=== PATIENT | male | born 1970 | race Caucasian/White ===

== ENCOUNTER 2025-03-22 19:44 | Inpatient (IN) | payer OTHER, SELFPAY ==
[2025-03-22 20:09] VITALS: BP 115/78; BP 140/80; PULSE 100; PULSE 94; RESP 18; TEMP 36.8; O2SAT 95; O2SAT 98; BMI 36.5
[2025-03-22 20:50] VITALS: BP 123/71; PULSE 93; RESP 16; TEMP 36.5; O2SAT 94
[2025-03-22 20:52] LABS: MANUAL DIFF FLAG NO
[2025-03-22 20:53] LABS: Basophils Percent Auto 0.4 % (0-2); Eosinophils Absolute Auto 0.1 X10*3/uL (0.0-0.4); Eosinophils Percent Auto 1.8 % (0-4); Hematocrit 42.1 % (42.0-52.0); Hemoglobin 15.8 g/dl (14.0-18.0); Imm Gran Abs Auto 0.01 X10*3/uL (0.00-0.03); Imm Gran Pct Auto 0.1 % (0.0-0.4); Lymphocytes Absolute Auto 1.4 X10*3/uL (1.2-4.9); Lymphocytes Percent Auto 19.1 % (20-40); Mean Corpuscular HGB Conc 37.5 g/dl (31.0-36.0); Mean Corpuscular Hemoglobin 33.1 pg (27.0-33.0); Mean Corpuscular Volume 88.3 fL (80.0-98.0); Mean Platelet Volume 8.6 fL (9.4-12.4); Monocytes Absolute Auto 0.5 X10*3/uL (0.1-1.2); Monocytes Percent Auto 6.4 % (2-11); Neutrophils Absolute Auto 5.4 x10*3/uL (2.0-8.3); Neutrophils Percent Auto 72.2 % (45-73); Platelet Count 126 X10*3/uL (160-400); Red Blood Count 4.77 X10*6/uL (4.60-5.80); Red Cell Distribution Width 11.6 % (11.0-16.0); White Blood Count 7.4 X10*3/uL (4.8-10.8)
[2025-03-22 21:09] LABS: Acetaminophen LAB < 3 mcg/mL (<30); Salicylate < 5.0 mg/dL (15-30)
[2025-03-22 21:10] LABS: Alanine Aminotransferase 87 U/L (0-40); Albumin Level 4.2 g/dL (3.5-5.0); Alkaline Phosphatase 86 U/L (39-117); Anion Gap 22 (12-20); Aspartate Amino Transferase 232 U/L (5-37); Bilirubin Total 0.6 mg/dL (0.0-1.0); Blood Urea Nitrogen 6 mg/dL (9-16); Calcium 8.7 mg/dL (8.4-10.2); Carbon Dioxide 18 mmol/L (22-29); Chloride 92 mmol/L (96-108); Creatinine Clr Calc Pharmacy 133.5; Estimated Glomerular Filt Rate > 60; Ethanol 308 mg/dL; Glucose Random 114 mg/dL (60-115); Potassium 4.4 mmol/L (3.3-5.1); Sodium 128 mmol/L (135-145); Total Protein 7.8 g/dL (6.5-8.0)
[2025-03-22 21:45] LABS: Appearance Urine Clear; Color Urine Yellow; Glucose Urine UA Negative (Negative); Leukocyte Esterase Urine Negative (Negative); Nitrite Urine Negative (Negative); Specific Gravity - Urine <= 1.005 (1.005-1.025); Urine Blood Negative (Negative); Urine Ketones Negative (Negative); Urine Protein Negative (Neg-Trace)
[2025-03-22 21:50] LABS: Bacteria Urine None Seen (None Seen); Hyaline Casts Urine 0-2 /LPF (0-2); RBC Urine 0-2 /HPF (0-2); Squamous Epithelial Cell Urine 0-2 /HPF (0-2); WBC Urine 0-5 /HPF (0-5)
[2025-03-22 21:54] LABS: Amphetamine Screen Urine Not Detected (Not Detect); Barbiturates, Urine Not Detected (Not Detect); Benzodiazepines Screen Urine Not Detected (Not Detect); Buprenorphine Scr Not Detected (Not Detect); Cannabinoid Screen Urine POSITIVE (Not Detect); Cocaine Screen Urine Not Detected (Not Detect); Fentanyl, urine Not Detected (Not Detect); Methadone Screen, Urine Not Detected (Not Detect); Opiate Screen Urine Not Detected (Not Detect); Oxycodone Screen Urine Not Detected (Not Detect); Phencyclidine Screen Urine Not Detected (Not Detect)
--- OUTSIDE RECORDS SUMMARY | 2025-03-22 21:55 | XMS_ITS | Encounter Summary ---
Author Organization [facility] Address [address] [place] [address] Care Team Providers Care Novelty Twister Tender Name Role Phone Hannah Salas MD Primary Care Provider [phone] Reason for Visit * Reason Onset Date Comments Testing 01/08/2023 Encounter Details Date Type Department Care Team Description 01/08/2023 Telephone Adult Medicine [address] [address] Tello Palacio, PAManuelaC [address] [place] [id number] Testing Social History Tobacco Use Types Packs/Day Years Used Date Smoking Tobacco: Never Smokeless Tobacco: Never Alcohol Use Standard Drinks/Week Comments Yes 0 (1 standard drink = 0.6 oz pur e alcohol) 12-15 beers per week Sex Assigned at Date Recorded Not on file Job Start Date Occupation Industry Not on file Not on file Not on file COVID-19 Exposure Response Date Recorded In the last 10 days, have yo u been in contact with someone who was confirmed or suspected to have Coronavirus/COVID-19? No / Unsure 12/29/2022 2:44 PM EST documented as of this encounter Miscellaneous Notes * Telephone Encounter - Debbi Isaac M.A. - 01/08/2023 11:18 AM EST Cologuard Order form and Patient demographics faxed to [employer] at documented in this encounter Plan of Treatment Not on file documented as of this encounter Visit Diagnoses Not on filedocumented in this encounter Care Teams Novelty Twister Tender Relationship Specialty Start Date End Date Hannah Salas MD [address] [place], [place] [phone] PCP - General 07/17/09 documented as of this encounter
--- OUTSIDE RECORDS SUMMARY | 2025-03-22 21:55 | XMS_ITS | Encounter Summary ---
Author Organization [facility] Address [address] [place] [address] Care Team Providers Care Strip Machine Operator Name Role Phone Hannah Salas MD Primary Care Provider Reason for Visit * Reason Comments E-prescribe Rx Request Encounter Details Date Type Department Care Team Description 07/16/2023 Refill Adult Medicine [address] [place] [address] [phone] Hannah Salas MD [address] [place] [id number] E-prescribe Rx Request Social History Tobacco Use Types Packs/Day Years Used Date Smoking Tobacco: Never Smokeless Tobacco: Never Alcohol Use Standard Drinks/Week Comments Yes 0 (1 standard drink = 0.6 oz pur e alcohol) 12-15 beers per week Sex Assigned at Date Recorded Not on file Job Start Date Occupation Industry Not on file Not on file Not on file documented as of this encounter Miscellaneous Notes * Telephone Encounter - Puja Jya M.A. - 07/24/2023 10:16 AM EDT Last office visit 12/29/22 Next office visit 10/02/23 Lab Results Component Value Date NA 138 12/26/2022 K 4.4 12/26/2022 CO2 27 12/26/2022 CL 105 12/26/2022 BUN 12 12/26/2022 CREAT 0.81 12/26/2022 GLU 103 12/26/2022 CA 9.1 12/26/2022 GFR 105 12/26/2022 documented in this encounter Plan of Treatment Not on file documented as of this encounter Visit Diagnoses Not on filedocumented in this encounter Care Teams Strip Machine Operator Relationship Specialty Start Date End Date Hannah Salas MD [address] [place] [address] PCP - General 07/17/09 documented as of this encounter
--- OUTSIDE RECORDS SUMMARY | 2025-03-22 21:55 | XMS_ITS | Encounter Summary ---
Author Organization [facility] Address [address] [place] [address] Care Team Providers Care Performance Instructor Name Role Phone Hannah Salas MD Primary Care Provider [phone] Reason for Visit * Reason Comments E-prescribe Rx Request Encounter Details Date Type Department Care Team Description 11/25/2021 Refill Gastroenterology - [place] [address] [phone] Ramses Sun PA-C [address] [address] E-prescribe Rx Request Social History Tobacco Use [...] on file documented as of this encounter Plan of Treatment Not on file documented as of this encounter Visit Diagnoses Not on filedocumented in this encounter Care Teams Performance Instructor Relationship Specialty Start Date End Date Hannah Salas MD [address] [place] [address] PCP - General 07/17/09 documented as of this encounter
--- OUTSIDE RECORDS SUMMARY | 2025-03-22 21:55 | XMS_ITS | Encounter Summary ---
Author Organization [facility] Address [address] [place] [address] Care Team Providers Care Aerospace Stress Engineer Name Role Phone Hannah Salas MD Primary Care Provider [phone] Reason for Visit * Reason Onset Date Comments Mychart Rx Refill 11/01/2018 Encounter Details Date Type Department Care Team Description 11/01/2018 Refill Adult Medicine [address] [facility] [address] [place] [address] Mychart Rx Refill Social History Tobacco Use Types Packs/Day Years [...] Miscellaneous Notes * Telephone Encounter - Debbi Hill M.A. - 11/01/2018 9:10 AM EST Lab Results Component Value Date CHOL 213 10/13/2017 LDL 126 10/13/2017 HDL 42 10/13/2017 TRIG 225 10/13/2017 SGOT 47 10/13/2017 SGPT 54 10/13/2017 Lab Results Component Value Date NA 143 12/07/2017 K 4.4 12/07/2017 CO2 24.0 12/07/2017 CL 103 12/07/2017 BUN 19 12/07/2017 CREAT 1.0 12/07/2017 GLU 86 12/07/2017 CA 9.1 12/07/2017 GFR > 60 12/07/2017 Pending ov with pcp 11/08/18 * Telephone Encounter - Debbi Hill M.A. - 11/01/2018 9:10 AM ESTFrom: Eliot Wolf To: SHADE Self Sent: 11/01/2018 8:53 AM EST Subject: Medication Renewal Request Original authorizing provider: SHADE Self would like a refill of the following medications: lisinopril (PRINIVIL,ZESTRIL) 20 MG tablet [SHADE Self] atorvastatin (LIPITOR) 10 MG tablet [SHADE Self] amlodipine (NORVASC) 10 MG tablet [SHADE Self] Preferred pharmacy: [facility] [address] [place] [address] AT [facility] Comment: documented in this encounter Plan of Treatment Not on file documented as of this encounter Visit Diagnoses Not on filedocumented in this encounter Care Teams Aerospace Stress Engineer Relationship Specialty Start Date End Date Hannah Salas MD [address] [place] [address] PCP - General 07/17/09 documented as of this encounter
--- OUTSIDE RECORDS SUMMARY | 2025-03-22 21:55 | XMS_ITS | Encounter Summary ---
Author Organization [facility] Address [address] [place] [address] Care Team Providers Care Camera Tuning Engineer Name Role Phone Hannah Salas MD Primary Care Provider [phone] Encounter Details Date Type Department Care Team Description 06/01/2023 Orders Only Medical Records [address] [place] [id number] Abstract, Provider Social History Tobacco Use Types Packs/Day Years [...] on file documented as of this encounter Procedures Procedure Name Priority Date/Time Associated Diagnosis Comments OUTSIDE COLONOSCOPY Routine 05/25/2023 documented in this encounter Results * OUTSIDE COLONOSCOPY (05/25/2023) Provider Abstract RADIOLOGY documented in this encounter Visit Diagnoses Not on filedocumented in this encounter Care Teams Camera Tuning Engineer Relationship Specialty Start Date End Date Hannah Salas MD [address] [place] [address] PCP - General 07/17/09 documented as of this encounter
--- OUTSIDE RECORDS SUMMARY | 2025-03-22 21:56 | XMS_ITS | Clinical Summary ---
Author Organization [facility] Address [address] [place] [address] Care Team Providers Care Assembling Motor Builder Name Role Phone Hannah Salas MD Primary Care Provider [phone] Allergies No known active allergies Medications Medication Sig Dispensed Refills Start Date End Date Status psyllium (METAMUCIL) 58.6 % packet Take 1 Packet by mouth daily. 30 Each 11 12/20/2020 Active vitamin E 400 units capsule TAKE 1 CAPSULE BY MOUTH TWICE A DAY 180 capsule 3 11/25/2021 Active econazole nitrate (Spectazole) 1 % cream Apply to affected area, bid 45 g 1 04/23/2022 Active amlodipine (NORVASC) 10 MG tablet Take 1 Tablet by mouth daily. 90 Tablet 1 04/05/2024 Active lisinopril (PRINIVIL,ZESTRIL) 30 MG tablet Take 1 Tablet by mouth daily. 90 Tablet 1 04/05/2024 Active atorvastatin (LIPITOR) 10 MG tablet Take 1 Tablet by mouth daily. 90 Tablet 1 04/05/2024 Active Active Problems Problem Noted Date WILBER (obstructive sleep apnea) 02/23/2024 Severe obesity with body mass index (BMI ) of 35.0 to 39.9 with comorbidity 03/01/2021 Elevated ferritin level 11/28/2020 Elevated LFTs 11/23/2020 Tinea corporis 12/09/2017 Aortic root dilatation 11/13/2017 Overview: 4.0 cm on echo 04/2018 Pure hypercholesterolemia 10/14/2017 Hypertension 09/30/2017 Overweight 09/30/2017 Elevated liver enzymes Fatty liver Resolved Problems Problem Noted Date Resolved Date Mixed hyperlipidemia 03/15/2010 09/30/2017 Atypical chest pain 11/01/2009 09/30/2017 Overview: ETT 2008 (-) Immunizations Name Administration Dates Next Due COVID-19 (Pfizer) 10/02/2021,02/19/2021,01/30/20 21 Influenza (> 6 Months) 10/22/2015,09/09/2013, Influenza H1N1 Pandemic Flu Vaccine 12/10/2009 Influenza Vaccine-quadrivalent 4 Years Plus 09/16 TD (STATE SUPPLIED FOR ADULTS AND CHILDREN) 12/17,12/30/2019,03/17/2001 TETANUS/DIPTHERIA (ADULT) 03/17/2001 Tdap 12/10/2009 Family History Medical History Relation Name Comments CA of Pancreas Aunt at age 80 Cholesterol Level Father Hypertension Father [place] Mother age 71 Relation Name Status Comments Aunt Brother Alive Father Alive Hypertension Mother (Age 71) mi Sister 1 Alive Sister 2 Alive Social History Tobacco Use Types Packs/Day Years Used Date Smoking Tobacco: Never Smokeless Tobacco: Never Alcohol Use Standard Drinks/Week Comments Yes 0 (1 standard drink = 0.6 oz pur e alcohol) 12-15 beers per week Sex Assigned at Date Recorded Not on file Job Start Date Occupation Industry Not on file Not on file Not on file Last Filed Vital Signs Vital Sign Reading Time Taken Comments Blood Pressure 116/64 04/05/2024 3:15 PM EDT Pulse 82 04/05/2024 3:15 PM EDT Temperature 35.4 ??C (95.8 ??F) 04/05/2024 3:15 PM ED T Respiratory Rate 18 04/05/2024 3:15 PM EDT Oxygen Saturation 97% 10/02/2023 5:25 PM EST Inhaled Oxygen Concentration - - Weight 110.1 kg (242 lb 12.8 oz) 04/05/2024 3:15 PM EDT Height 172.7 cm (5' 8 ) 04/05/2024 3:15 PM EDT Body Mass Index 36.92 04/05/2024 3:15 PM EDT Plan of Treatment Health Maintenance Due Date Last Done Comments SHINGLES VACCINE (1 of 2) 02/19/2018 Covid-19 Vaccine (4 - 2022-2 4 season) 2024 10/02/2021, 02/19/2021, 01/29/2021 BMI CHECK/ADVISE 11/16/2024 04/05/2024, 03/2024, 10/02/2023, Additional history exists INFLUENZA (Season Ended) 2025 017, 10/22/2015, 09/09/2013, Additional history exists BASELINE HEALTH EXAM 40-64 04/01/202604/01, 10/02/2023, 10/26/2013, Additional history exists CHOLESTEROL SCREENING 10/02/2028 10/02/2023 , 12/10/2021, 11/21/2020, Additional history exists DTAP/TDAP/TD (4 - Td or Tdap) 12/30/2029, 12/30/2019, 12/10/2009, Additional history exists PNEUMOCOCCAL VACCINE FOR HIG H RISK PATIENTS (#1) 02/19/2033 COLON CANCER SCREENING 05/25/2033 05/25/2023 HEPATITIS C SCREENING Completed 01/25/2021, 021 Care Teams Assembling Motor Builder Relationship Specialty Start Date End Date Hannah Salas MD [address] [place], [place] [phone] PCP - General 07/17/09
--- OUTSIDE RECORDS SUMMARY | 2025-03-22 21:56 | XMS_ITS | Encounter Summary ---
Author Organization [facility] Address [address] [place] [address] Care Team Providers Care Window Shade Cutter And Mounter Name Role Phone Hannah Salas MD Primary Care Provider [phone] Encounter Details Date Type Department Care Team Description 05/11/2024 Refill Adult Medicine [address] [address] Hannah Salas MD [address] [place] [address] [phone] Social History Tobacco Use Types Packs/Day Years [...] Miscellaneous Notes * Telephone Encounter - Puja Jay M.A. - 05/11/2024 11:15 AM EDT Last office visit 04/05/24 Patient is to follow-up with in 6 months documented in this encounter Plan of Treatment Not on file documented as of this encounter Visit Diagnoses Not on filedocumented in this encounter Care Teams Window Shade Cutter And Mounter Relationship Specialty Start Date End Date Hannah Salas MD [address] [place] [address] PCP - General 07/17/09 documented as of this encounter
--- OUTSIDE RECORDS SUMMARY | 2025-03-22 21:56 | XMS_ITS | Encounter Summary ---
Author Organization [facility] Address [address] [place] [address] Care Team Providers Care Tree Inspector Name Role Phone Hannah Salas MD Primary Care Provider [phone] Encounter Details Date Type Department Care Team Description 01/21/2021 Telephone Gastroenterology - [place] [address] [phone] Ramses Sun PA-C [address] [address] Social History Tobacco Use Types Packs/Day Years [...] encounter Miscellaneous Notes * Telephone Encounter - Ramses Sun PA-C - 01/21/2021 1:07 PM EST Noted and will be in touch with him regarding resuls * Telephone Encounter - Chani Gary - 01/21/2021 12:54 PM EST Left a detailed message to have labs drawn at his earliest convenience. Also let him know they are not fasting. * Telephone Encounter - Ramses Sun PA-C - 01/21/2021 12:22 PM EST Patient needs to repeat labs and I will be in touch with him regarding results. These labs do not have to be fasting documented in this encounter Plan of Treatment Not on file documented as of this encounter Results * (ABNORMAL) IRON/TIBC (01/25/2021 10:05 AM EST) Pathologist [facility] TOTAL IRON BINDING CAPACITY 377 250 - 450 ug/dL 01/25/2021 1:13 PM EST [facility] IRON (FE) 69 50 - 160 ug/dL 01/25/2021 1:13 PM EST [facility] % FE SATURATION 18(L) 20 - 50 % 1:13 PM EST [facility] 01/25/2021 10:0 5 AM EST 01/25/2021 10:05 AM EST Ramses Sun PA-C LAB [facility] * (ABNORMAL) HEPATITIS PANEL (01/25/2021 10:05 AM EST) Pathologist [facility] Hepatitis B surface antibody POSITIVE(A) NEGATIVE 01/25/2021 1:13 PM EST [facility] Hepatitis B surface antigen NEGATIVE NEGATIVE 01/25/2021 1:25 PM EST [facility] Comment: Over the counter supplements containing high doses of biotin may interfere with this assay. ??If interference is suspected, patients shoud be retested after refraining from biotin supplements for 72 hours. Hepatitis C Virus Diagnostic NEGATIVE NEGATIVE 01/25/2021 1:53 PM EST [facility] HEPATITIS A ANTIBODY TOTAL NEGATIVE NEGATIVE 01/25/2021 1:58 PM EST [facility] Comment: Over the counter supplements containing high doses of biotin may interfere with this assay. ??If interference is suspected, patients shoud be retested after refraining from biotin supplements for 72 hours. HEPATITIS B CORE ANTIBODY NEGATIVE NEGATIVE 01/25/2021 1:59 PM EST [facility] 01/25/2021 10:0 5 AM EST 01/25/2021 10:05 AM EST Ramses Corinne PA-C LAB Performing Organization Address [facility] Co de Phone Number [facility] * (ABNORMAL) FERRITIN ASSAY (01/25/2021 10:05 AM EST) FERRITIN 487(H) 26 - 388 ng/mL 01/25/2021 1:13 PM EST [facility] 01/25/2021 10:0 5 AM EST 01/25/2021 10:05 AM EST Ramses Corinne PA-C LAB Performing Organization Address [facility] Co de Phone Number [facility] * (ABNORMAL) COMPREHENSIVE METABOLIC PANEL (01/25/2021 10:05 AM EST) Blood Urea Nitrogen 13 5 - 25 mg/dL 01/25/2021 1:06 PM EST [facility] CREAT 0.88 0.7 - 1.3 mg/dL 01/25/2021 1:06 PM EST [facility] GLOMERULAR FILTRATION RATE > 60 01/25/2021 1:06 PM EST [facility] Comment: If patient is -Dominican, multiply result by 1.21 Chronic Kidney Disease: < 60 ml/min/1.73 square meters Kidney Failure: < 15 ml/min/1.73 square meters CALCIUM 9.4 8.5 - 10.5 mg/dL 01/25/2021 1:06 PM EST [facility] Albumin 4.3 3.2 - 5.0 G/dL 01/25/2021 1:06 PM EST [facility] SGPT 84(H) 10 - 60 U/L 01/25/2021 1:06 PM EST [facility] NA 136 135 - 145 mEq/L 01/25/2021 1:13 PM EST [facility] K 4.5 3.5 - 5.5 mmol/L 01/25/2021 1:13 PM EST [facility] CL 104 96 - 110 mmol/L 01/25/2021 1:13 PM EST [facility] CARBON DIOXIDE (CO2) 30 21 - 32 mmol/L 01/25/2021 1:13 PM EST [facility] ANION GAP 2(L) 3 - 11 01/25/2021 1:13 PM EST [facility] GLUCOSE 78 70 - 100 mg/dL 01/25/2021 1:13 PM EST [facility] Comment:Reference range appl icable to fasting specimens only TOTAL PROTEIN (TP) 7.9 6.0 - 8.0 G/dL 01/25/2021 1:13 PM EST [facility] BILIRUBIN TOTAL 0.6 0.0 - 1.4 mg/dL 01/25/2021 1:13 PM EST [facility] SGOT 55(H) 10 - 42 U/L 01/25/2021 1:13 PM EST [facility] ALK PHOS 47 42 - 121 U/L 01/25/2021 1:13 PM EST [facility] 01/25/2021 10:0 5 AM EST 01/25/2021 10:05 AM EST Ramses Sun PA-C LAB [facility] * ASSAY, BLOOD CERULOPLASMIN (01/25/2021 10:05 AM EST) CERULOPLASMIN 25 20 - 60 mg/dL 01/28/2021 4:14 AM EDT [facility] Comment: Test performed at [facility], [address] , [place], [place] ??[address] ? [phone] Josue Garces MD ??- Utility Service Worker 01/25/2021 10:0 5 AM EST 01/25/2021 10:05 AM EST Ramses POLANCOC LAB [facility] * CBC (AUTO DIFF PLATELET) (01/25/2021 10:05 AM EST) WHITE BLOOD COUNT 5.5 4.8 - 10.8 x10-3/uL 01/25/2021 12:15 PM EST [facility] RED BLOOD COUNT 5.2 4.5 - 5.5 x10-6/uL 01/25/2021 12:15 PM EST [facility] Hemoglobin 16.0 13.5 - 17.5 g/dL 01/25/2021 12:15 PM EST [facility] Hematocrit 47.3 42 - 54 % 01/25/2021 12:15 PM EST [facility] MEAN CORPUSCULAR VOLUME 90.8 79 - 98 fL 01/25/2021 12:15 PM EST [facility] MEAN CORPUSCULAR HEMOGLOBIN 30.7 27 - 32 pg 01/25/2021 12:15 PM EST [facility] MEAN CORPUSCULAR HGB CONC 33.8 32 - 37 g/dL 01/25/2021 12:15 PM EST [facility] RED CELL DISTRIBUTION WIDTH 12.0 11 - 15 % 01/25/2021 12:15 PM EST [facility] PLT COUNT 181 130 - 400 x10-3/uL 01/25/2021 12:15 PM EST [facility] MEAN PLATELET VOLUME 9.9 7 - 11 fL 01/25/2021 12:15 PM EST [facility] NRBC % AUTO 0.0 <1 % 01/25/2021 12:15 PM EST [facility] NEUTROPHILS % 55.3 % 01/25/2021 12:15 PM EST [facility] LYMPH % 30.1 % 01/25/2021 12:15 PM EST [facility] MONO % 11.1 % 01/25/2021 12:15 PM EST [facility] EOS % 2.6 % 01/25/2021 12:15 PM EST [facility] BASO % 0.7 % 01/25/2021 12:15 PM EST [facility] IMMATURE GRANULOCYTES % 0.2 % 01/25/2021 12:15 PM EST [facility] NRBC # AUTO 0.00 <0.1 x10-3/uL 01/25/2021 12:15 PM EST [facility] NEUT # 3.03 1.5 - 7.0 x10-3/uL 01/25/2021 12:15 PM EST [facility] LYMPH # 1.65 1 - 5.0 x10-3/uL 01/25/2021 12:15 PM EST [facility] MONO # 0.61 0.2 - 1.0 x10-3/uL 01/25/2021 12:15 PM EST [facility] EOS # 0.14 0 - 0.5 x10-3/uL 01/25/2021 12:15 PM EST [facility] BASO # 0.04 0 - 0.2 x10-3/uL 01/25/2021 12:15 PM EST [facility] IMMATURE GRANULOCYTES # 0.01 0 - 0.03 x10-3/uL 01/25/2021 12:15 PM EST [facility] 01/25/2021 10:0 5 AM EST 01/25/2021 10:05 AM EST Ramses Sun PA-C LAB [facility] documented in this encounter Visit Diagnoses Diagnosis Anemia, unspecified type- Primary documented in this encounter Care Teams Tree Inspector Relationship Specialty Start Date End Date Hannah Salas MD [address] [place] [address] PCP - General 07/17/09 documented as of this encounter
--- OUTSIDE RECORDS SUMMARY | 2025-03-22 21:56 | XMS_ITS | Clinical Summary ---
Author Organization [address] Address [address] [place] [phone] Phone Care Team Providers Care Engineering Technical Specialist Name Role Phone Hannah Salas MD Primary Care Provider [phone] Allergies No known active allergies Medications alpha tocopherol (VITAMIN E) 268 mg (400 unit) capsule Take 1 capsule (400 Units total) by mouth 2 (two) times a day. 11/25/2021 Active psyllium (METAMUCIL) 3.4 gram packet Take 1 packet by mouth 1 (one) time each day. 12/20/2020 Active econazole nitrate 1 % cream Apply thin layer to affected area twice daily. 15 g 5 11/17/2024 Active hydrOXYzine HCL (ATARAX) 10 mg tablet Take 1 tablet (10 mg total) by mouth 3 (three) times a day. 60 tablet 1 11/17/2024 Active atorvastatin (LIPITOR) 10 mg tablet Take 1 tablet (10 mg total) by mouth 1 (one) time each day. 90 tablet 3 11/17/2024 Active amLODIPine (NORVASC) 10 mg tablet Take 1 tablet (10 mg total) by mouth 1 (one) time each day. 90 tablet 3 11/17/2024 Active lisinopriL (PRINIVIL,ZESTR IL) 30 mg tablet Take 1 tablet (30 mg total) by mouth 1 (one) time each day. 90 tablet 3 11/17/2024 Active sertraline (ZOLOFT) 25 mg tablet TAKE 0.5 TABLETS BY MOUTH 1 TIME EACH DAY. 45 tablet 02/15/2025 Active Active Problems Problem Noted Date Diagnosed Date Elevated liver enzymes 10/28/2024 Fatty liver 10/28/2024 WILBER (obstructive sleep apnea) 02/23/2024 Severe obesity with body mas s index (BMI) of 35.0 to 39.9 with comorbidity ([facility] V24, [facility] V28) 03/01/2021 Elevated ferritin level 11/28/2020 Elevated LFTs 11/23/2020 Tinea corporis 12/09/2017 Aortic root dilatation ([facility] V24) 11/13/2017 Overview (10/28/2024): 4.0 cm on echo 04/2018 Pure hypercholesterolemia 10/14/2017 Overweight 09/30/2017 Hypertension 09/30/2017 Encounters Date Type Department Care Team Description 02/08/2025 7:37 AM EDT - 02/08/2025 11:59 PM EDT Hospital Encounter Radiology Department - [address] [phone] Elevated LFTs; Fatty liver; Pure hypertriglyceridemia Discharge Disposition: Home or Self Care 01/16/2025 Telephone Adult Medicine [facility] - [address] [phone] Tammie Eastman NP from Last 3 Months Immunizations Name Administration Dates Next Due H1N1 Inj Preservative Free 12/10/2009 Influenza Quadravalent, MDCK , 0.5ml, with preservative (Flucelvax) 6mo and older 09/30/2017 Influenza trivalent, 0.5mL, preservative free (Fluarix; FluLaval; Fluzone) ages 6mo and older (Afluria) 3 years and older 10/22/2015,09/09/2013,12/10/2009 Td Tetanus diptheria (Tdvax) 7yo and older 12/30,03/17/2001 Td, Unspecified 03/17/2001 Tdap Tetanus diptheria acell ular pertussis (Boostrix; Adacel) 7yo and older 12/10/2009 Surgical History Surgery Date Site/Laterality Comments OTHER SURGICAL HISTORY PROCEDURE: DENIES PREVIOUS SURGERY Medical History Medical History Date Comments Mixed hyperlipidemia 03/15/2010 DX:Mixed hy perlipidemia HTN (hypertension) DX:HTN (hyper tension) Aortic root dilatation (CMS/HCC V24) 05/11/2018 DX:Aortic root dilatation (HCC); COMMENT: 4.0 cm on echo Overweight DX:Overweight Elevated liver enzymes DX:Elevat ed liver enzymes Fatty liver DX:Fatty liver Family History Medical History Relation Name Comments Pancreatic cancer Aunt at age 80 Hyperlipidemia Father Hypertension Father Heart attack Mother age 71 Relation Name Status Comments Aunt Brother Alive Father Alive Hypertension Mother (Age 71) mi Sister 1 Alive Sister 2 Alive Social History Tobacco Use Types Packs/Day Years Used Date Smoking Tobacco: Never Smokeless Tobacco: Never Tobacco Cessation:Counseling Given: Not Answered Alcohol Use Standard Drinks/Week Comments Yes 0 (1 standard drink = 0.6 oz pur e alcohol) Housing Instability Answer Date Recorde d Are you worried that in the next 2 months you may not have stable housing? No 11/03/2024 Food Access & Nutrition Answer Date Rec orded Do you have access to a vari ety of food including fruits and vegetables? Yes 11/03/2024 Access to Healthcare Answer Date Record ed Within the last 3 months, ho w many times did you visit the emergency department for your medical care? 0 11/03/2024 Health Literacy Answer Date Recorded How often do you need to hav e someone help you when you read instructions, pamphlets, or other written material from your doctor or pharmacy? Rarely 11/03/2024 Caregiver: How often do you need to have someone help you when you read instructions, pamphlets, or other written material from your doctor or pharmacy? Not on file 11/03/2024 Financial Risk Answer Date Recorded How hard is it for you to pa y for the very basics like food, housing, medical care, and air conditioning / heating? Not very hard 11/03/2024 Transportation Answer Date Recorded Has the lack of transportati on kept you from meetings, work, or from getting things needed for daily living? No Has the lack of transportati on kept you from medical appointments or from getting medications? No 11/03/2024 Social Isolation Answer Date Recorded How often do you feel lonely or isolated from th ose around you? Rarely 11/03/2024 Food Risk Answer Date Recorded Within the past 12 months we worried whether our food would run out before we got money to buy more. Never true 11/03/2024 Within the past 12 months th e food we bought just didn't last and we didn't have money to get more. Never true 11/03/2024 Dependent Care Answer Date Recorded Do you need help finding or paying for care for your loved ones. For example, child & adolescent psychiatrist or elderly care for an older adult? No 11/03/2024 Education Answer Date Recorded Do you think completing more education or training, like finishing a GED, going to college, or learning a trade, would be helpful for you? No 11/03/2024 Employment and Income Answer Date Recor ded During the last four weeks, have you been actively looking for work? No 11/03/2024 Living Situation Answer Date Recorded What is your living situation? 1 01/04/2024 Sex and Gender Information Value Date Recorded Sex Assigned at Not on file Legal Sex Male 4:13 PM EST Gender Identity Not on file Sexual Orientation Not on file Obstetrics History Last Filed Vital Signs Vital Sign Reading Time Taken Comments Blood Pressure 118/74 11/17/2024 2:17 PM EST Pulse 94 11/17/2024 2:17 PM EST Temperature 36.5 ??C (97.7 ??F) 11/17/2024 2:17 PM ES T Respiratory Rate 16 11/17/2024 2:17 PM EST Oxygen Saturation 97% 11/17/2024 2:17 PM EST Inhaled Oxygen Concentration - - Weight 108 kg (237 lb) 11/17/2024 2:17 PM EST Height 172.7 cm (5' 8 ) 11/17/2024 2:17 PM EST Body Mass Index 36.04 11/17/2024 2:17 PM EST Plan of Treatment Health Maintenance Due Date Last Done Comments Hepatitis A Vaccines (1 of 2 - Risk 2-dose series) 02/19/1987 Hepatitis B Vaccines (1 of 3 - 19+ 3-dose series) 02/19/1987 Pneumococcal Vaccine: 50+ Years (1 of 2 - PCV) 02/19/1987 Pneumococcal Vaccine: Pediatrics (0 to 5 Years) and At-Risk Patients (6 to 64 Years) (1 of 2 - PCV) 02/19/1987 Zoster Vaccines (1 of 2) 02/19/2018 HIV Screening 10/25/2022 COVID-19 Vaccine (4 - season) 2024 10/02/2021, 02/19/2021, 01/29/2021 Influenza Vaccine (Season Ended) 2025 09/30/2017, 10/22/2015, 09/09/2013, Additional history exists Depression Screening 11/03/2025 11/03/2024 Social Influencers of Health Screening 11/03/2025 11/03/2024 Hypertension/CHF/CAD Annual BMP Blood Test 12/19/2025 12/19/2024, 10/02/2023 Cholesterol Screening (Lipid Panel) 12/19/2029 12/19/2024, 12/19/2024, 10/02/2023 DTaP,Tdap,and Td Vaccines (5 - Td or Tdap) 12/30/2029 12/30/2019, 12/10/2009, 03/17/2001, Additional history exists Colorectal Cancer Screening: Colonoscopy 05/25/2033 05/25/2023 Hepatitis C Screening Completed 01/25/2021 HIB Vaccines Aged Out No longer eligi ble based on patient's age to complete this topic HPV Vaccines Aged Out No longer eligi ble based on patient's age to complete this topic IPV Vaccines Aged Out No longer eligi ble based on patient's age to complete this topic MMR Vaccines Aged Out No longer eligi ble based on patient's age to complete this topic Meningococcal ACWY Vaccine Aged Out N o longer eligible based on patient's age to complete this topic Meningococcal B Vaccine Aged Out No l onger eligible based on patient's age to complete this topic RSV Immunization Patients Under 20 months Aged Out No longer eligible based on patient's age to complete this topic Varicella Vaccines Aged Out No longer eligible based on patient's age to complete this topic Procedures Procedure Name Priority Date/Time Associated Diagnosis Comments US ABDOMEN LIMITED Routine 02/08/2025 8: 03 AM EDT Elevated LFTs Fatty liver Pure hypertriglyceridemia HEPATIC FUNCTION PANEL Routine 01/13/2025 9:19 AM EST Elevated LFTs Fatty liver Pure hypertriglyceridemia BASIC METABOLIC PANEL Routine 12/19/2024 3:55 PM EST Hypertension, unspecified type Fatty liver Pure hypercholesterolemia Elevated LFTs Elevated liver enzymes Overweight LIPID PANEL WITH REFLEX TO DIRECT LDL Routine 12/19/2024 3:55 PM EST Hypertension, unspecified type Fatty liver Pure hypercholesterolemia Elevated LFTs Elevated liver enzymes Overweight HM COLONOSCOPY Routine 05/25/2023 HEPATITIS C SCREENING Routine 01/25/2021 from Last 3 Months or Most Recently Relevant to Health Maintenance Results * US Abdomen Limited (02/08/2025 8:03 AM EDT) Anatomical Region Laterality Modality Body Ultrasound 02/08/2025 9:48 AM EDT Impressions 02/08/2025 9:54 AM EDT 1. Hepatic steatosis and hepatomegaly 2. ??Left hepatic lobe cyst -------- FINAL REPORT -------- Dictated By: Denise Garcia Dictated Date: 02/08/2025 09:48 ET Assigned Physician: Denise Garcia Reviewed and Electronically Signed By: Denise Garcia Signed Date: 02/08/2025 09:54 ET Workstation ID: [id number] Transcribed By: Self Edit Transcribed Date: 02/08/2025 09:48 ET Narrative 02/08/2025 9:54 AM EDT Exam: Right upper quadrant ultrasound/US Limited History: Elevated LFT, Fatty liver Technique: Burns scale and color Doppler imaging was utilized. Comparison: Ultrasound complete abdomen from 12/12/2020 FINDINGS: Liver: ??increasedin echotexture. Left hepatic lobe 1.4 x 1.1 x 1.1 cm anechoic thin-walled cyst. ??The liver measures 22.2 cm. ??There is no evidence of intrahepatic biliary ductal dilation. There is no ascites. Gallbladder: ??no gallbladder stone, wall thickening or pericholecystic fluid. Common bile duct: measures 0.4 cm. Right kidney: measures 11.7 cm and is sonographically unremarkable Pancreas: The pancreas is obscured due to bowel gas Procedure Note Denise Garcia MD - 02/08/2025 Exam: Right upper quadrant ultrasound/US Limited History: Elevated LFT, Fatty liver Technique: Burns scale and color Doppler imaging was utilized. Comparison: Ultrasound complete abdomen from 12/12/2020 FINDINGS: Liver: increasedin echotexture. Left hepatic lobe 1.4 x 1.1 x 1.1 cmanechoic thin-walled cyst. The liver measures 22.2 cm. There is noevidence of intrahepatic biliary ductal dilation. There is no ascites. Gallbladder: no gallbladder stone, wall thickening or pericholecysticfluid. Common bile duct: measures 0.4 cm. Right kidney: measures 11.7 cm and is sonographically unremarkable Pancreas: The pancreas is obscured due to bowel gas IMPRESSION: 1. Hepatic steatosis and hepatomegaly 2. Left hepatic lobe cyst -------- FINAL REPORT -------- Dictated By: Denise Garcia Dictated Date: 02/08/2025 09:48 ET Assigned Physician: Denise Garcia Reviewed and Electronically Signed By: Denise Garcia Signed Date: 02/08/2025 09:54 ET Workstation ID: [id number] Transcribed By: Self Edit Transcribed Date: 02/08/2025 09:48 ET us Tammie Eastman NP IMG US PROCEDURES Final Resu lt * (ABNORMAL) Hepatic function panel (01/13/2025 9:19 AM EST) Total Protein 7.3 6.0 - 8.0 g/dL LAB CHEMISTRY METHOD 01/13/2025 11:31 AM EST [facility] Albumin 3.9 3.2 - 5.0 g/dL LAB CHEMISTRY METHOD 01/13/2025 11:31 AM EST [facility] Total Bilirubin 1.0 0.0 - 1.4 mg/dL LAB CHEMISTRY METHOD 01/13/2025 11:31 AM [facility] Bilirubin, Direct 0.4(H) 0.0 - 0.3 mg/dL LAB CHEMISTRY METHOD 01/13/2025 11:31 AM [facility] Bilirubin, Indirect 0.6 0.0 - 1.1 mg/dL LAB CHEMISTRY METHOD 01/13/2025 11:31 AM [facility] ALT (SGPT) 131(H) 10 - 60 unit/L LAB CHEMISTRY METHOD 01/13/2025 11:31 AM [facility] AST (SGOT) 151(H) 10 - 42 unit/L LAB CHEMISTRY METHOD 01/13/2025 11:31 AM [facility] Alkaline Phosphatase 71 42 - 121 unit/L LAB CHEMISTRY METHOD 01/13/2025 11:31 AM [facility] Blood Venous blood specimen / Unknown Venipuncture / Unknown 01/13/2025 9:19 AM EST 01/13/2025 9:19 AM EST us Tammie Eastman DOUBLE REAMER OPERATOR LAB BLOOD ORDERABLES Final R esult [facility] [address] [place] [address], * (ABNORMAL) Lipid panel with reflex to direct LDL (12/19/2024 3:55 PM EST) Cholesterol 256(H) 0 - 200 mg/dL LAB CHEMISTRY METHOD 12/19/2024 7:24 PM [facility] Triglycerides 770(H) 0 - 150 mg/dL LAB CHEMISTRY METHOD 12/19/2024 7:24 PM [facility] Comment:Results verified by repeat testing HDL 40 >=40 mg/dL LAB CHEMISTRY METHOD 12/19/2024 7:24 PM [facility] LDL Calculated LAB CHEMISTRY METHOD 12/19/2024 7:24 PM [facility] Comment: Unable to calculate when triglycerides >400 mg/dL. Triglyceride value is >= 500. ??Calculated LDL is not meaningful. ??Direct LDL has been added. VLDL Cholesterol [place] LAB CHEMISTRY METHOD 12/19/2024 7:24 PM [facility] Comment:Unable to calculate when triglycerides >400 mg/dL. Non HDL Chol. (LDL+VLDL) LAB CHEMISTRY METHOD 12/19/2024 7:24 PM [facility] Comment:Unable to calculate when triglycerides >400 mg/dL. Chol/HDL Ratio 6.4(H) 0.0 - 4.4 LAB CHEMISTRY METHOD 12/19/2024 7:24 PM [facility] Blood Venous blood specimen / Unknown Venipuncture / Unknown 12/19/2024 3:55 PM EST 12/19/2024 3:55 PM EST Tammie Eastman DOUBLE REAMER OPERATOR LAB BLOOD ORDERABLES Final R esult [facility] [address] [place] [address], [place] [phone] * (ABNORMAL) Basic metabolic panel (12/19/2024 3:55 PM EST) Sodium 132(L) 133 - 145 mmol/L LAB CHEMISTRY METHOD 12/19/2024 7:09 PM [facility] Potassium 4.0 3.5 - 5.5 mmol/L LAB CHEMISTRY METHOD 12/19/2024 7:09 PM [facility] Chloride 97 96 - 110 mmol/L LAB CHEMISTRY METHOD 12/19/2024 7:09 PM [facility] CO2 25 21 - 32 mmol/L LAB CHEMISTRY METHOD 12/19/2024 7:09 PM [facility] Anion Gap 10 3 - 11 LAB CHEMISTRY METHOD 12/19/2024 7:09 PM [facility] Glucose 104(H) 70 - 100 mg/dL LAB CHEMISTRY METHOD 12/19/2024 7:09 PM EST [facility] BUN 7 5 - 25 mg/dL LAB CHEMISTRY METHOD 12/19/2024 7:09 PM [facility] Creatinine 0.94 0.70 - 1.30 mg/dL LAB CHEMISTRY METHOD 12/19/2024 7:09 PM [facility] eGFR 95 >=60 mL/min/1. 73m2 LAB CHEMISTRY METHOD 12/19/2024 7:09 PM [facility] Comment:Calculation based on the??Chronic Kidney Disease Epidemiology Collaboration (CKD-EPI) equation refit??without adjustment for race. BUN/Creatinine Ratio 7.4 LAB CHEMISTRY METHOD 12/19/2024 7:09 PM [facility] Calcium 8.6 8.5 - 10.5 mg/dL LAB CHEMISTRY METHOD 12/19/2024 7:09 PM [facility] Blood Venous blood specimen / Unknown Venipuncture / Unknown 12/19/2024 3:55 PM EST 12/19/2024 3:55 PM EST Tammie Eastman NP LAB BLOOD ORDERABLES Final R esult [facility] [address] [place] [address], * Colonoscopy (05/25/2023) Pathologist [facility] Colonoscopy No Interpretation , Abstracted Anatomical Region Laterality Modality Other Historical Provider HEALTH MAINTENANCE Final Result * Hepatitis C Screening (01/25/2021) Pathologist [facility] Hepatitis C Screening Abstracted Historical Provider HEALTH MAINTENANCE Final Result from Last 3 Months or Most Recently Relevant to Health Maintenance Insurance [facility] Care Teams Engineering Technical Specialist Relationship Specialty Start Date End Date Hannah Salas MD [address] [place] [address] PCP - General 07/17/09
--- OUTSIDE RECORDS SUMMARY | 2025-03-22 21:56 | XMS_ITS | Encounter Summary ---
Author Organization [facility] Address [address] [place] [address] Care Team Providers Care Respiratory Care Technician Name Role Phone Hannah Salas MD Primary Care Provider [phone] Encounter Details Date Type Department Care Team Description 06/05/2023 Orders Only Adult Medicine [address] [address] Hannah Salas MD [address] [place] [phone] Social History Tobacco Use Types Packs/Day Years [...] on filedocumented in this encounter Care Teams Respiratory Care Technician Relationship Specialty Start Date End Date Hannah Salas MD [address] [place] [phone] PCP - General 07/17/09 documented as of this encounter
--- OUTSIDE RECORDS SUMMARY | 2025-03-22 21:56 | XMS_ITS | Encounter Summary ---
Author Organization [facility] Address [address] [place] [address] Care Team Providers Care Photoengraving Proofer Apprentice Name Role Phone Hannah Salas MD Primary Care Provider [phone] Reason for Visit * Reason Onset Date Comments Medication 01/16/2020 Colonoscopy Encounter Details Date Type Department Care Team Description 01/16/2020 Refill Gastroenterology - [address] [place] [address] [place] Arias MD [address] [place] [phone] Medication (Colonoscopy) Social History Tobacco Use Types Packs/Day Years [...] on filedocumented in this encounter Care Teams Photoengraving Proofer Apprentice Relationship Specialty Start Date End Date Hannah Salas MD [address] [place] [phone] PCP - General 07/17/09 documented as of this encounter
[2025-03-22 22:22] VITALS: BP 128/76; PULSE 105; RESP 20; TEMP 36.7; O2SAT 94
--- NOTE | 2025-03-22 22:54 | ED_ITS ---
HPI - General Adult General Chief complaint: Psychiatric Symptoms Stated complaint: SI Time Seen by Provider: 03/22/25 22:20 Source: patient, family (), RN notes reviewed and old records reviewed Mode of arrival: EMS Limitations: no limitations History of Present Illness ED Provider: Gemini ESCAMILLA narrative: 55-year-old male past medical history significant for hypertension presents for evaluation of depression, anxiety and alcohol abuse the patient reports over the last 6 months to 1 year he has had significantly increasing anxiety which he feels related to work stressors he reports that he was initially managing with small amounts of alcohol throughout the day to manage his nerves he took a leave from work and was doing better, so 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 He has been making several suicidal comments to his the crisis team and was recommended to come to the hospital for inpatient psychiatric care currently he only complains of anxiety Related Data Allergies Allergy/AdvReac Type Severity Reaction Status Date / Time No Known Allergies Allergy Verified 03/22/25 20:13 Review of Systems 2 Constitutional: Constitutional: Denies body ache(s), Denies chills, Denies fever(s) and Denies headache(s) Eyes: Eyes: Denies blurry vision ENT: Denies vertigo, Denies dizziness and Denies headache(s) Cardiovascular: Cardiovascular: Denies chest pain and Denies dyspnea Respiratory: Respiratory: Denies cough and Denies dyspnea Gastrointestinal: Gastrointestinal: Denies abdominal pain, Denies nausea and Denies vomiting Musculoskeletal: Musculoskeletal: Denies back pain Integumentary/Breasts: Skin/Breast: Denies rash Neurologic: Reports behavioral changes, Denies vertigo, Denies dizziness and Denies headache(s) Psychiatric: Psychiatric: Reports anxiety, Reports behavioral changes, Reports depression, Denies visual hallucinations, Denies homicidal ideation and Reports suicidal ideation PMFSH Social History Social History Alcohol intake: current Alcohol intake frequency: 3 or more drinks per day Smoked in Last 30 Days: No Use of substances other than those prescribed or required for medical reasons: Yes Substance Use Type: Marijuana Substance Use Frequency: Occasionally Advance Directives: No Advance Directives Information Provided: Yes Physical Exam ED Vital Signs: Vital Signs - 24 hr 03/22/25 20:09 03/22/25 20:50 03/22/25 22:22 Temperature 98.2 F 97.7 F 98.1 F Pulse Rate 94 93 105 H Respiratory Rate 18 16 20 Blood Pressure 115/78 123/71 128/76 Pulse Oximetry 95 94 94 Oxygen Delivery Method Room Air Room Air Room Air 03/23/25 02:58 03/23/25 03:24 03/23/25 04:36 Temperature 98.2 F 98.7 F 99 F Pulse Rate 110 H 119 H 116 H Respiratory Rate 14 18 16 Blood Pressure 105/63 95/69 Pulse Oximetry 96 95 92 Oxygen Delivery Method Room Air Room Air Room Air 03/23/25 06:12 03/23/25 08:40 03/23/25 10:36 Temperature 98.3 F 98.8 F Pulse Rate 123 H 128 H 120 H Respiratory Rate 16 18 14 Blood Pressure 110/68 102/66 122/56 L Pulse Oximetry 95 94 92 Oxygen Delivery Method Room Air Room Air Room Air 03/23/25 14:07 Temperature 98.8 F Pulse Rate 113 H Respiratory Rate 14 Blood Pressure 108/56 L Pulse Oximetry 92 Oxygen Delivery Method Room Air BMI result Body Mass Index 36.5 Const General: healthy appearing, comfortable, no acute distress, alert and awake Nutritional Appearance: well nourished Orientation/consciousness: patient oriented x3 HENMT Head: Yes normocephalic and Yes atraumatic Eyes Eyelids: Yes eyelids normal Conjunctivae: conjunctivae normal Sclerae: sclerae normal Corneas: corneas normal Pupils: Equal, round and reactive pupils present EOM: EOMs intact bilaterally Neck Neck: Yes full ROM Resp Effort & Inspection: normal respiratory effort, able to speak in complete sentences and not labored Cardio Rate: regular rate Rhythm: regular rhythm Skin General skin exam: no rashes or lesions noted and elasticity normal Neuro General: patient oriented x3 Cranial nerves: Yes CN's II-XII intact bilaterally, Yes Equal, round and reactive pupils present and Yes Bilaterally intact EOM present Cognition (Neuro): normal cognition Extrem Other: Moving all extremities well without any obvious deformities Psych Appearance: grossly normal Mental Status: mental status grossly normal Speech and movement: Normal speech and movement present Affect: Sad affect present Attitude: cooperative Thought process: Normal thought process present Thought content: Suicidality present Insight: Good insight present (Psych) Judgement: Good judgement present (Psych) Course Reevaluation(s) Reevaluation #1: patient's labs have improved after IV fluids, his sodium is still slightly low but now 132, his chloride has normalized. He still has slightly elevated anion gap to 22. We will treat D5 normal saline at 250c an hour and the patient will be medically cleared for care team evaluation Time: 02:41 Reevaluation #2: 03/23/2025 at 09:30 hours, Dr. Benny Ward's note: I assumed care of this patient from my colleague Dr. August at 07:00 hours. 55-year-old male who presents emergency department for evaluation of acute alcohol intoxication and suicidal ideation. The patient has been depressed since October 2024 and has been binge drinking. Patient does not identify a specific trigger however his father did in July of 2024 and he had increased work stress after that. The patient states that over the last 3 weeks he has been binge drinking. He drinks at least 2 bottles of wine per day or will drink a large bottle of vodka. He states that when he stops drinking he does get tremulous and just continues to drink. Patient has never had delirium tremors, alcohol withdrawal seizures but does get tremulous when he stops drinking. the patient states he has had fleeting suicidal thoughts but does not have a plan to injure himself. The patient's wanted to get the patient help sooner but the patient refused. Prior to coming to the emergency department he did tell his that he was going to kill himself, she became very concerned and Called a crisis hotline and the patient was evaluated at home and then sent to the emergency depart by ambulance for suicidal ideation and alcohol use disorder. He was evaluated by care team who felt that the patient met criteria for inpatient admission for depression and suicidal ideation. I am concerned that the patient may be at risk for alcohol withdrawal therefore I did start him on the phenobarbital protocol with a 12 milligram/kilogram IM load and then he oral protocol. The patient was placed on a Section 12 and will be in in-patient bed search. 14:18 the patient has received 2 of the 3 loading doses of phenobarb IM. Patient is alert, oriented to person and place, he is not having any visual or auditory hallucinations however he has become more tremulous. when the patient got up to walk to the bathroom he was ataxic and required a walker which is new for him. Given these findings, I am concerned that the patient may be having significant alcohol withdrawal and would not be appropriate for the psychiatric service at this time and will need a medical admission. Is tachycardic with a heart rate of 108, blood pressure is low at 100 8/56. I did discuss the patient's presentation over tiger text with the covering hospitalist, Time: 09:30 Medications Administered Generic Name Dose Route Start Last Admin Trade Name Freq PRN Reason Stop Dose Admin Lorazepam 2 mg 03/23/25 02:25 03/23/25 06:34 Lorazepam 1 Mg Tablet PO 2 mg Q4H PRN Administration Alcohol Withdrawal Phenobarbital Sodium 250 mg 03/23/25 13:00 03/23/25 12:57 Phenobarbital Sodium 130 Mg/Ml Vial Im Q3hx2 IM 03/23/25 16:01 250 mg Q3H RANGEL Administration Protocol Discontinued Medications Generic Name Dose Route Start Last Admin Trade Name Freq PRN Reason Stop Dose Admin Sodium Chloride 1,000 mls @ 999 mls/hr 03/22/25 23:00 03/23/25 00:08 Ns IV 03/23/25 00:00 Infused .Q1H1M RANGEL Infusion Folic Acid 1 mg/ Sodium 50.2 mls @ 100.4 mls/hr 03/22/25 22:47 03/22/25 23:08 Chloride IV 03/22/25 23:16 Not Given ONCE ONE Thiamine HCl 500 mg/ Sodium 105 mls @ 210 mls/hr 03/22/25 22:47 03/22/25 23:57 Chloride IV 03/22/25 23:16 Infused ONCE ONE Infusion Dextrose/Sodium Chloride 1,000 mls @ 250 mls/hr 03/23/25 02:45 03/23/25 06:46 D5ns IVCONT Infused .Q4H RANGEL Infusion Ibuprofen 600 mg 03/23/25 00:56 03/23/25 02:14 Ibuprofen 600 Mg Tablet PO 03/23/25 00:57 600 mg ONCE ONE Administration Lorazepam 2 mg 03/22/25 22:37 03/22/25 23:01 Lorazepam 1 Mg Tablet PO 03/22/25 22:38 2 mg ONCE ONE Administration Lorazepam 2 mg 03/23/25 08:44 03/23/25 08:57 Lorazepam 1 Mg Tablet PO 03/23/25 08:45 2 mg ONCE STA Administration Phenobarbital Sodium 330 mg 03/23/25 10:00 03/23/25 10:31 Phenobarbital Sodium 130 Mg/Ml Im Once IM 03/23/25 10:01 330 mg ONCE ONE Administration Protocol Trazodone HCl 100 mg 03/23/25 00:56 03/23/25 02:15 Trazodone Hcl 100 Mg Tablet PO 03/23/25 00:57 100 mg ONCE ONE Administration Medical Decision Making Medical Decision Making [facility] Narrative: 55-year-old male with past medical history significant for hypertension presents for evaluation of depression with suicidal ideation. He reports this stems from severe anxiety. He has been drinking alcohol heavily. He was seen in the community and recommended to come to the hospital for inpatient psychiatric care. the patient's medical workup significant for a hyponatremia of 128 with a chloride of 92, carbon dioxide of 18, anion gap of 22 and a BUN of 6. This is all likely related to alcoholism and alcoholic ketosis. He also has an elevated AST and ALT likely related to alcoholism. Bilirubin is within normal limits, less likely obstructive biliary disease. The patient also does not have any abdominal pain or nausea. Thrombocytopenia likely due to the alcoholic liver disease. this with IV fluids, he will get folic acid and thiamine. We will treat his anxiety with Ativan and labs will be redrawn. His alcohol level was 308. Differential Diagnosis Differential Diagnoses: The differential diagnosis associated with the presentation includes alcohol abuse Depression Anxiety Suicidal ideation Alcoholic ketosis Dehydration ROSIE Admission/Observation Consideration of admission/observation: Escalation of care including admission/observation considered Lab Data [facility] Lab Attestation statement: I reviewed the patient's lab results. as above 03/22/25 20:47 03/23/25 02:02 Labs: Lab Results 03/22/25 03/22/25 03/23/25 Range/Units 20:47 21:38 02:02 WBC 7.4 (4.8-10.8) X10*3/uL RBC 4.77 (4.60-5.80) X10*6/uL Hgb 15.8 (14.0-18.0) g/dl Hct 42.1 (42.0-52.0) % MCV 88.3 (80.0-98.0) fL MCH 33.1 H (27.0-33.0) pg MCHC 37.5 H (31.0-36.0) g/dl RDW 11.6 (11.0-16.0) % Plt Count 126 L (160-400) X10*3/uL MPV 8.6 L (9.4-12.4) fL Immature Gran % (Auto) 0.1 (0.0-0.4) % Neut % (Auto) 72.2 (45-73) % Lymph % (Auto) 19.1 L (20-40) % Andrews % (Auto) 6.4 (2-11) % Eos % (Auto) 1.8 (0-4) % Baso % (Auto) 0.4 (0-2) % Lymph # (Auto) 1.4 (1.2-4.9) X10*3/uL Andrews # (Auto) 0.5 (0.1-1.2) X10*3/uL Eos # (Auto) 0.1 (0.0-0.4) X10*3/uL Baso # (Auto) 0.0 (0.0-0.2) X10*3/uL Abs Immat Gran (auto) 0.01 (0.00-0.03) X10*3/uL Absolute Neuts (auto) 5.4 (2.0-8.3) x10*3/uL Absolute Nucleated RBC 0.000 (0.0-0.012) X10*3/uL Nucleated RBC % (auto) 0.0 (0.0-0.2) /100WBC Sodium 128 L 132 L (135-145) mmol/L Potassium 4.4 4.0 (3.3-5.1) mmol/L Chloride 92 L 96 (96-108) mmol/L Carbon Dioxide 18 L 18 L (22-29) mmol/L Anion Gap 22 H 22 H (12-20) BUN 6 L 5 L (9-16) mg/dL Creatinine 0.73 0.74 (0.5-1.4) mg/dL Estim Creat Clear Calc 133.5 131.7 Estimated GFR > 60 > 60 Random Glucose 114 120 H (60-115) mg/dL Calcium 8.7 8.5 (8.4-10.2) mg/dL Magnesium 1.9 (1.6-2.6) mg/dL Total Bilirubin 0.6 (0.0-1.0) mg/dL AST 232 H (5-37) U/L ALT 87 H (0-40) U/L Alkaline Phosphatase 86 (39-117) U/L Total Protein 7.8 (6.5-8.0) g/dL Albumin 4.2 (3.5-5.0) g/dL Urine Color Yellow Urine Appearance Clear Urine pH 6.0 (5.0-9.0) Ur Specific [place] <= 1.005 (1.005-1.025) Urine Protein Negative (Neg-Trace) mg/dL Urine Glucose (UA) Negative (Negative) mg/dL Urine Ketones Negative (Negative) mg/dL Urine Blood Negative (Negative) Urine Nitrite Negative (Negative) Ur Leukocyte Esterase Negative (Negative) Urine RBC 0-2 (0-2) /HPF Urine WBC 0-5 (0-5) /HPF Ur Squamous Epith Cells 0-2 (0-2) /HPF Urine Bacteria None Seen (None Seen) Hyaline Casts 0-2 (0-2) /LPF Salicylates < 5.0 L (15-30) mg/dL Urine Opiates Screen Not Detected (Not Detect) Ur Buprenorphine Scrn Not Detected (Not Detect) ng/mL Ur Oxycodone Screen Not Detected (Not Detect) ng/mL Urine Methadone Screen Not Detected (Not Detect) ng/mL Urine Fentanyl Screen Not Detected (Not Detect) Acetaminophen < 3 (<30) mcg/mL Ur Barbiturates Screen Not Detected (Not Detect) Ur Phencyclidine Scrn Not Detected (Not Detect) Ur Amphetamines Screen Not Detected (Not Detect) U Benzodiazepines Scrn Not Detected (Not Detect) Urine Cocaine Screen Not Detected (Not Detect) U Marijuana (THC) Screen POSITIVE H (Not Detect) Ethyl Alcohol 308 H* mg/dL Critical Care Time Critical Care Time Critical Care Time: Yes Total Critical Care Time: 45 Attestation: Critical Care: The patient was critically ill with a high probability of imminent or life threatening deterioration. I spent greater than 30 minutes of discontinuous time evaluating the patient,delivering critical care at the bedside, discussing and evaluating pertinent data with consultants. Critical care time does not include time spent performing separately billable procedures or teaching. Total time spent performing critical care was 45 minutes. Discharge Plan Discharge Clinical Impression: Acute anxiety, Suicidal ideation, Alcohol abuse, Acute hyponatremia Patient Disposition: Admitted As Inpatient Interventions: [place]-Suicide Risk Severity Scale Last Done: 03/23/25 02:11 Admission Worksheet (ED) Last Done: 03/23/25 14:08 Print Language: Chinese
[2025-03-22] MEDS: LORazepam 1 MG TABLET 2 MG PO (23:01)
[2025-03-22] MEDS: 0.9 % Sodium Chloride 1,000 ML 999 ML IV (23:07)
[2025-03-22] MEDS: Thiamine HCL 500 MG in 0.9 % Sodium Chloride 100 ML 210 MG IV (23:08)
--- NOTE | 2025-03-22 23:19 | PC.NURSE ---
20g IV line placed in L AC. IV fluids infusing. PT medicated as per MAR. although pt denies SI/HI at this time, he was called in as an expect from [facility] for SI statements. Awaiting medical clearance and disposition.
--- NOTE | 2025-03-22 23:38 | ECG_ITS ---
Test Reason : AGE OVER 50 Blood Pressure : */* mmHG Vent. Rate : 99 BPM Atrial Rate : 99 BPM P-R Int : 146 ms QRS Dur : 102 ms QT Int : 414 ms P-R-T Axes : 75 16 17 degrees QTcB Int : 531 ms Normal sinus rhythm Inferior infarct , age undetermined Cannot rule out Anterior infarct , age undetermined Abnormal ECG No previous ECGs available Referred By: Vincent Singletary Electronically Signed By: TUSHAR FITZPATRICK
[2025-03-23] VITALS (10 sets, daily range): BP systolic 95–130; BP diastolic 56–85; PULSE 109–128; RESP 14–20; TEMP 36.8–37.5; O2SAT 92–96
[2025-03-23] MEDS: Ibuprofen 600 MG TABLET PO (02:14)
[2025-03-23] MEDS: traZODone HCL 100 MG TABLET PO (02:15)
[2025-03-23 02:28] LABS: Anion Gap 22 (12-20); Blood Urea Nitrogen 5 mg/dL (9-16); Calcium 8.5 mg/dL (8.4-10.2); Carbon Dioxide 18 mmol/L (22-29); Chloride 96 mmol/L (96-108); Creatinine Clr Calc Pharmacy 131.7; Estimated Glomerular Filt Rate > 60; Glucose Random 120 mg/dL (60-115); Magnesium 1.9 mg/dL (1.6-2.6); Sodium 132 mmol/L (135-145)
[2025-03-23] MEDS: LORazepam 1 MG TABLET 2 MG PO ×3 (02:33→08:57)
[2025-03-23] MEDS: Dextrose 5 % and 0.9 % NaCl 1,000 ML 250 ML IVCONT (03:49)
--- NOTE | 2025-03-23 05:05 | PC.NURSE ---
PT pressures soft, new onset of dizziness and unsteady gait with ambulation noted. Notified provider. Provider at bedside at this time
--- NOTE | 2025-03-23 06:41 | PC.NURSE ---
pt medically cleared, awaiting care team follow up. IV line removed. taken off surveillance monitor. CIWA 5. medicated as per mar. requested and and provided prune and orange. remains at bedside.
--- NOTE | 2025-03-23 07:34 | PC.NURSE ---
Pt resting quietly in room; spouse at bedside; sitter in place for pt safety; vss; CIWA score 4; pt medically cleared by MD; awaiting care team eval
--- NOTE | 2025-03-23 08:34 | PC.NURSE ---
Care Team at bedside for reassessment; recommendation is inpatient psych care at this point, per Anitha, Care Team; MD made aware; pt/spouse made aware; sitter remains in place for pt safety and CT feels pt is a flight risk
--- NOTE | 2025-03-23 08:49 | PC.NURSE ---
Pt's CIWA score increased after being told he was coming inpt as a dual dx for ETOH W/D and SI; HR 120's and anxiety acutely increased (CIWA score 9); Dr Ward made aware
--- NOTE | 2025-03-23 09:09 | MHC.CARE ---
Pt meets the criteria for IPLOC and a Section 12a is in chart. Provider in agreement.
[2025-03-23] MEDS: PHENobarbitaL sodium 130 MG/ML IM ONCE 330 MG IM (10:31)
--- NOTE | 2025-03-23 10:46 | PC.NURSE ---
Pt reports some relief of sx's of ETOG w/d after PO Ativan; tremors remain and HR 120 at rest; MD aware; phenobarbitol protocol started pt educated on the protocol and med; will cont to monitor/tx per orders; sitter remains in place for pt safety
[2025-03-23] MEDS: PHENobarbitaL sodium 130 MG/ML VIAL IM Q3Hx2 250 MG IM ×2 (12:57→18:17)
--- NOTE | 2025-03-23 16:37 | PHA.MEDREC ---
Addendum entered by Zaheer Gerber [facility] 03/23/25 17:15: MED REC CHECKED BY [facility] Original Note: Pharmacy Consult ? Medication Reconciliation Pharmacy has completed the medication reconciliation. Spoke with patient and pt spouse at bedside. Patient and spouse confirmed he is no longer taking the Mirtazapine 7.5mg tab and per the spouse the pt stopped that in the last few months
--- NOTE | 2025-03-23 17:29 | PM.IMHP ---
History of Present Illness Date of Service: 03/23/25 Attending physician on admission: Jhon Robertson Chief Complaint: Increasing anxiety Pt is a 55-year-old male with a PMH significant for?HTN, HLD, alcohol use disorder, depression, and anxiety who presents to the ED after making suicidal comments to his who called crisis hotline who recommended pt come to the hospital for inpatient psychiatric care. Was seen and evaluated by care team in the ED who felt pt met criteria for inpatient psychiatric admission. However, ED clinician concerned about possibility for alcohol withdrawal and was started on phenobarb protocol. Pt reports has been experienced increasing anxiety due to life stressors for the past 5 months and medicating with alcohol, drinking almost daily for the past 5 months since mid October, around 8-10 beers a day. However, notes pt has been drinking more heavily for the past 3 weeks including wine, vodka, and other hard liquor. Last drink yesterday afternoon at 14:00. Denies hx of alcohol withdrawal. Nausea and dry heaves in the morning prior to alcohol use. Denies tremors. Increasing anxiety but denies diaphoresis. Currently states he feels better and no longer has any suicidal ideation. Never had a plan. Denies chest pain/pressure, palpitations. No SOB or difficulty breathing. In the ED pt was tachycardic up to 128 and was soft BP as low as 108/56. Labs were significant for sodium 128 with repeat 132, bicarb 18, anion gap 22, AST 232, and ALT 87. Ethyl alcohol level 308 at time of presentation. UA negative for UTI. EKG demonstrated normal sinus rhythm with QTc 531 and no evidence of significant ischemia. Pt was treated in the ED with lorazepam 2 mg p.o., IVF, thiamine 500 mg IV, ibuprofen, trazodone, and started on phenobarb protocol. Pt is admitted to the hospital for treatment and further evaluation of acute alcohol withdrawal. Review of Systems Review of Systems: Negative except for that which is stated in the HPI. [facility] Medical History (Updated 03/23/25 @ 18:41 by JEANIE Lobato) Alcohol use disorder Anxiety HLD (hyperlipidemia) HTN (hypertension) Social History Alcohol intake: current Alcohol intake frequency: 3 or more drinks per day Patient Tobacco Use Status: Former Tobacco user Smoked in Last 30 Days: No Use of substances other than those prescribed or required for medical reasons: Yes Substance Use Type: Marijuana Substance Use Frequency: Occasionally Advance Directives: No Advance Directives Information Provided: Yes Nutrition Risks: No Nutritional Risk Meds Allergies Allergy/AdvReac Type Severity Reaction Status Date / Time No Known Allergies Allergy Verified 03/22/25 20:13 Active Medications: Current Medications Lorazepam (Lorazepam 1 Mg Tablet) 2 mg PO Q4H PRN PRN Reason: Alcohol Withdrawal Last Admin: 03/23/25 06:34 Dose: 2 mg Pharmacy Consult (Consult Rx Etoh Phenob Im/Po) 1 each MISCELLANE ONCE PRN; Protocol PRN Reason: Consult order Phenobarbital (Phenobarbital 15 Mg Tablet) 45 mg PO BID RANGEL; Protocol Stop: 03/25/25 09:01 Phenobarbital (Phenobarbital 30 Mg Tablet) 30 mg PO BID RANGEL; Protocol Stop: 03/27/25 09:01 Phenobarbital (Phenobarbital 30 Mg Tablet) 30 mg PO Q24H RANGEL; Protocol Stop: 03/28/25 21:01 Home Medications ?Medication ?Instructions ?Recorded ?Confirmed ?Last Taken ?Type acetaminophen 325 mg tablet 650 mg PO Q4H PRN Pain 03/23/25 03/23/25 03/22/25 History (Tylenol) amlodipine 10 mg tablet 10 mg PO DAILY 03/23/25 03/23/25 03/22/25 History atorvastatin 10 mg tablet 10 mg PO DAILY 03/23/25 03/23/25 03/22/25 History clonazepam 0.5 mg tablet 0.5 mg PO BID PRN Anxiety 03/23/25 03/23/25 Unknown History hydroxyzine HCl 10 mg tablet 10 mg PO TID PRN Anxiety 03/23/25 03/23/25 Unknown History ibuprofen 200 mg tablet 400 mg PO Q6H PRN Pain 03/23/25 03/23/25 Unknown History lisinopril 30 mg tablet 30 mg PO DAILY 03/23/25 03/23/25 03/22/25 History psyllium husk 0.4 gram capsule 2 g PO DAILY PRN Constipation 03/23/25 03/23/25 Unknown History (Metamucil) psyllium husk 3.4 gram/5.4 gram 1 tbsp PO DAILY PRN Constipation 03/23/25 03/23/25 03/22/25 History oral powder (Metamucil) vitamin E 50 mg PO DAILY 03/23/25 03/23/25 03/22/25 History Physical Exam Vital Signs and Narrative: Vital Signs: Last Vital Signs Temp 98.8 F 03/23/25 14:07 Pulse 113 H 03/23/25 14:07 Resp 14 03/23/25 14:07 BP 108/56 L 03/23/25 14:07 Pulse Ox 92 03/23/25 14:07 O2 Del Method Room Air 03/23/25 14:07 BMI result Body Mass Index 36.5 General: AOx3, no acute distress Resp: CTA bilaterally CVS: S1, S2, RRR GI: +BS, NT, no distention Skin: Warm, dry Neuro: Cranial nerves II-XII grossly intact bilaterally. Motor grossly intact bilaterally. No tremors noted. No tongue fasciculations. Extremities: No edema Psych: Flat affect Results Labs 03/22/25 20:47 03/23/25 02:02 Labs: Laboratory Results - last 24 hr 03/22/25 03/22/25 03/23/25 20:47 21:38 02:02 MCV 88.3 MCH 33.1 H MCHC 37.5 H RDW 11.6 Plt Count 126 L MPV 8.6 L Immature Gran % (Auto) 0.1 Neut % (Auto) 72.2 Lymph % (Auto) 19.1 L Upson % (Auto) 6.4 Eos % (Auto) 1.8 Baso % (Auto) 0.4 Lymph # (Auto) 1.4 Upson # (Auto) 0.5 Eos # (Auto) 0.1 Baso # (Auto) 0.0 Abs Immat Gran (auto) 0.01 Absolute Neuts (auto) 5.4 Absolute Nucleated RBC 0.000 Nucleated RBC % (auto) 0.0 Anion Gap 22 H 22 H Estim Creat Clear Calc 133.5 131.7 Estimated GFR > 60 > 60 Random Glucose 114 120 H Calcium 8.7 8.5 Magnesium 1.9 Total Bilirubin 0.6 AST 232 H ALT 87 H Alkaline Phosphatase 86 Total Protein 7.8 Albumin 4.2 Urine Color Yellow Urine Appearance Clear Urine pH 6.0 Ur Specific [facility] <= 1.005 Urine Protein Negative Urine Glucose (UA) Negative Urine Ketones Negative Urine Blood Negative Urine Nitrite Negative Ur Leukocyte Esterase Negative Urine RBC 0-2 Urine WBC 0-5 Ur Squamous Epith Cells 0-2 Urine Bacteria None Seen Hyaline Casts 0-2 Salicylates < 5.0 L Urine Opiates Screen Not Detected Ur Buprenorphine Scrn Not Detected Ur Oxycodone Screen Not Detected Urine Methadone Screen Not Detected Urine Fentanyl Screen Not Detected Acetaminophen < 3 Ur Barbiturates Screen Not Detected Ur Phencyclidine Scrn Not Detected Ur Amphetamines Screen Not Detected U Benzodiazepines Scrn Not Detected Urine Cocaine Screen Not Detected U Marijuana (THC) Screen POSITIVE H Ethyl Alcohol 308 H* Assessment and Plan (1) Alcohol withdrawal: Status: Acute Plan Pt is a 55-year-old male with a PMH significant for?HTN, HLD, alcohol use disorder, depression, and anxiety who presents to the ED after making suicidal comments to his who called crisis hotline who recommended pt come to the hospital for inpatient psychiatric care. Pt is admitted to the hospital for treatment and further evaluation of acute alcohol withdrawal. Acute alcohol withdrawal Pt has been drinking heavily and almost daily for the past 5 months Increased alcohol use x3 weeks, 8-10 beers +vodka +wine +other hard liquor Last drink yesterday afternoon at 14:00 Originally started on Ativan protocol, transitioned to phenobarb due to increased CIWA scale Continue phenobarb protocol Thiamine, folic acid, multivitamin Monitor on CIWA Addiction medicine consultation Monitor on telemetry Hyponatremia Initial sodium 128 with repeat 132 In the setting of alcohol use disorder Pt given IVF in the ED Trend sodium Transaminitis AST 232 with ALT 87 In the setting of alcohol use disorder Trend LFTs Prolonged QTc QTc 531 at time of presentation Avoid QT-prolonging meds Repeat EKG in the morning Mood disorder Pt with increased anxiety secondary to life stressors Has been medicating with alcohol Has been voicing SI without plan to Currently denies SI/HI Has been seen by care team and meets qualification for inpatient psychiatric stabilization One-to-one sitter Repeat care team assessment once medically cleared HTN BP has been soft Hold lisinopril and amlodipine Resume as warranted HLD Continue atorvastatin Full Code Attending:?Dr. Robertson DVT Prophylaxis: Lovenox Pt will require a hospitalization of at least two nights for treatment of?acute alcohol withdrawal requiring treatment with phenobarb protocol, close monitoring of cardiac function, and psychiatric stabilization once medically cleared. Quality Stroke Does the patient have a stroke diagnosis?: No VTE Prior VTE?: No VTE Risk Level:: Medical - moderate - high VTE Device Contraindication: Treatment Not Indicated VTE Drug Contraindication: N/A - Med Ordered
[2025-03-23] MEDS: PHENobarbitaL 15 MG TABLET 45 MG PO (20:26)
[2025-03-23] MEDS: Enoxaparin Sodium 40 MG/0.4 ML SYRINGE SUBCUT (20:26)
[2025-03-24 03:23] VITALS: BP 123/93; PULSE 111; RESP 18; TEMP 36.7; O2SAT 95
[2025-03-24 08:00] VITALS: BP 117/79; PULSE 102; RESP 17; TEMP 37.6; O2SAT 95
[2025-03-24] MEDS: PHENobarbitaL 15 MG TABLET 45 MG PO ×2 (08:39→19:59)
[2025-03-24] MEDS: Atorvastatin Calcium 10 MG TABLET PO (08:39)
[2025-03-24 08:52] LABS: Alanine Aminotransferase 71 U/L (0-40); Albumin Level 3.7 g/dL (3.5-5.0); Alkaline Phosphatase 76 U/L (39-117); Anion Gap 14 (12-20); Aspartate Amino Transferase 153 U/L (5-37); Bilirubin Total 0.8 mg/dL (0.0-1.0); Blood Urea Nitrogen 4 mg/dL (9-16); Calcium 8.5 mg/dL (8.4-10.2); Carbon Dioxide 24 mmol/L (22-29); Chloride 100 mmol/L (96-108); Creatinine Clr Calc Pharmacy 117.4; Estimated Glomerular Filt Rate > 60; Glucose Random 102 mg/dL (60-115); Potassium 3.5 mmol/L (3.3-5.1); Sodium 134 mmol/L (135-145); Total Protein 6.5 g/dL (6.5-8.0)
[2025-03-24 12:00] VITALS: BP 131/82; PULSE 106; RESP 16; TEMP 37
--- NOTE | 2025-03-24 14:54 | MHC.CM.PN ---
PATIENT ILDA FROM HOME DX SI+ ETOH He lives with his . Patient is independent with all functional mobility. He qualifies for [facility]. He is on [facility] for ETOH Withdrawal management. Transfer to [facility] once medically cleared. A new HCP has been documented and scanned into EMR. PCP Hannah Harp @ [facility]– [place]
--- NOTE | 2025-03-24 15:50 | P.PNIM_ITS ---
Subjective Subjective Date of Service: 03/24/25 Interval History: No acute issues overnight. Doing well with phenobarb protocol Review of Systems Denies chest pain Denies shortness of breath Denies nausea vomiting diarrhea Denies fever chills Physical Exam 2 Vital Signs: Vital Signs: Last Vital Signs Temp 98.6 F 03/24/25 12:00 Pulse 106 H 03/24/25 12:00 Resp 16 03/24/25 12:00 BP 131/82 03/24/25 12:00 Pulse Ox 95 03/24/25 08:00 O2 Del Method Room Air 03/24/25 12:00 BMI result Body Mass Index 36.5 Const: Other: Awake alert no acute distress Resp: Other: Clear to auscultation bilaterally no rales rhonchi or wheezes Cardio: Other: No S4; positive S1-S2; no S3 murmurs rubs or gallops GI: Other: Soft nontender nondistended normoactive bowel sounds Extrem: Other: No edema bilaterally Objective Data Active Medications Acetaminophen (Acetaminophen 325 Mg Tablet) 650 mg PO Q6H PRN PRN Reason: Pain, Mild 1-3,fever,headache Atorvastatin Calcium (Atorvastatin Calcium 10 Mg Tablet) 10 mg PO DAILY [facility] Last Admin: 03/24/25 08:39 Dose: 10 mg Documented By: CHAI Calcium Carbonate (Calcium Carbonate 750 Mg Tab.Chew) 750 mg PO Q4H PRN PRN Reason: Heartburn Clonazepam (Clonazepam 0.5 Mg Tablet) 0.5 mg PO BID PRN PRN Reason: Anxiety Enoxaparin Sodium (Enoxaparin Sodium 40 Mg/0.4 Ml Syringe) 40 mg SUBCUT Q24H [facility] Last Admin: 03/23/25 20:26 Dose: 40 mg Documented By: ANTOINC Hydroxyzine HCl (Hydroxyzine Hcl 10 Mg Tablet) 10 mg PO TID PRN PRN Reason: Anxiety Lorazepam (Lorazepam 1 Mg Tablet) 2 mg PO Q4H PRN PRN Reason: Alcohol Withdrawal Last Admin: 03/23/25 06:34 Dose: 2 mg Documented By: CATHLEEN Magnesium Hydroxide (Milk Of Magnesia 30 Ml Oral.Susp) 30 ml PO DAILY PRN PRN Reason: Constipation Pharmacy Consult (Consult Rx Etoh Phenob Im/Po) 1 each MISCELLANE ONCE PRN; Protocol PRN Reason: Consult order Phenobarbital (Phenobarbital 15 Mg Tablet) 45 mg PO BID [facility]; Protocol Stop: 03/25/25 09:01 Last Admin: 03/24/25 08:39 Dose: 45 mg Documented By: CHAI Phenobarbital (Phenobarbital 30 Mg Tablet) 30 mg PO BID [facility]; Protocol Stop: 03/27/25 09:01 Phenobarbital (Phenobarbital 30 Mg Tablet) 30 mg PO Q24H [facility]; Protocol Stop: 03/28/25 21:01 Sodium Chloride (0.9 % Sodium Chloride Flush 3 Ml Syringe) 3 ml IVFLUSH QSHIFT [facility] Last Admin: 03/24/25 08:35 Dose: Not Given Documented By: CHAI Non-Admin Reason: Does not have an IV. Labs 03/22/25 20:47 03/24/25 07:08 Labs: Laboratory Results - last 24 hr 03/24/25 07:08 Hold Purple Top SEE NOTE Anion Gap 14 Estim Creat Clear Calc 117.4 Estimated GFR > 60 Random Glucose 102 Calcium 8.5 Total Bilirubin 0.8 AST 153 H ALT 71 H Alkaline Phosphatase 76 Total Protein 6.5 Albumin 3.7 Assessment and Plan (1) Alcohol withdrawal: Status: Acute (2) Acute hyponatremia: Status: Acute Plan Pt is a 55-year-old male with a PMH significant for?HTN, HLD, alcohol use disorder, depression, and anxiety who presents to the ED after making suicidal comments to his who called crisis hotline who recommended pt come to the hospital for inpatient psychiatric care. Pt is admitted to the hospital for treatment and further evaluation of acute alcohol withdrawal. 1.Acute alcohol withdrawal -no seizure activities -tolerating phenobarb protocol -psych transfer when medically cleared 2.Hyponatremia -responded to volume -follow renal/divalents 3.Transaminitis -trending downward -follow clinically 4.Mood disorder -inpatient psych admission when clear -continue one-to-one 5.HTN -acceptable control on current therapies -resume outpatient therapies in his in Full Code Lovenox Patient will require ongoing hospitalization to complete CIWA protocol Quality Stroke Does the patient have a stroke diagnosis?: No VTE Prior VTE?: No VTE Risk Level:: Medical - moderate - high VTE Device Contraindication: Treatment Not Indicated VTE Drug Contraindication: N/A - Med Ordered
[2025-03-24 16:00] VITALS: BP 131/93; PULSE 102; RESP 16; TEMP 36.8; O2SAT 95
[2025-03-24] MEDS: 0.9 % Sodium Chloride Flush 3 ML SYRINGE IVFLUSH ×2 (17:32→20:01)
[2025-03-24] MEDS: Enoxaparin Sodium 40 MG/0.4 ML SYRINGE SUBCUT (18:39)
[2025-03-24 19:09] VITALS: BP 123/77; PULSE 99; RESP 20; TEMP 36.8; O2SAT 95
[2025-03-24 23:56] VITALS: BP 130/93; PULSE 84; RESP 20; TEMP 36.3; O2SAT 98
[2025-03-25 03:33] VITALS: BP 135/93; PULSE 85; RESP 20; TEMP 37; O2SAT 96
[2025-03-25 06:53] LABS: Anion Gap 13 (12-20); Blood Urea Nitrogen 6 mg/dL (9-16); Calcium 8.5 mg/dL (8.4-10.2); Carbon Dioxide 24 mmol/L (22-29); Chloride 101 mmol/L (96-108); Creatinine Clr Calc Pharmacy 137.2; Estimated Glomerular Filt Rate > 60; Glucose Random 97 mg/dL (60-115); Potassium 3.4 mmol/L (3.3-5.1); Sodium 135 mmol/L (135-145)
[2025-03-25 06:55] VITALS: BP 133/80; PULSE 84; RESP 18; TEMP 36.2; O2SAT 96
[2025-03-25] MEDS: PHENobarbitaL 15 MG TABLET 45 MG PO (09:50)
[2025-03-25] MEDS: Atorvastatin Calcium 10 MG TABLET PO (09:50)
[2025-03-25] MEDS: 0.9 % Sodium Chloride Flush 3 ML SYRINGE IVFLUSH (09:51)
--- NOTE | 2025-03-25 14:57 | PM.DS ---
DS: Providers Provider Date of Service: 03/25/25 Date of admission: 03/23/25 17:28 Date of discharge: 03/25/25 Primary care physician: Hannah Salas MD Consults: 03/23/25 02:40 ED CARE Team Crisis Consult Stat Comment: Reason for consultation: alcohol abuse, depression with suicidal ideation 03/25/25 10:42 Inpt CARE Team Crisis Consult Routine Comment: Reason for consultation: Originally admitted to psych;medicine for ETOH withdrawal. Medically clear DS: Diagnosis Discharge Diagnosis (1) Alcohol withdrawal: Status: Acute (2) Acute hyponatremia: Status: Acute DS: Summary Hospital Course Hospital Course: 55-year-old male with a PMH significant for?HTN, HLD, alcohol use disorder, depression, and anxiety who presents to the ED after making suicidal comments to his who called crisis hotline who recommended pt come to the hospital for inpatient psychiatric care. Was seen and evaluated by care team in the ED who felt pt met criteria for inpatient psychiatric admission. However, ED clinician concerned about possibility for alcohol withdrawal and was started on phenobarb protocol. Pt reports has been experienced increasing anxiety due to life stressors for the past 5 months and medicating with alcohol, drinking almost daily for the past 5 months since mid October, around 8-10 beers a day. However, notes pt has been drinking more heavily for the past 3 weeks including wine, vodka, and other hard liquor. Last drink yesterday afternoon at 14:00. Denies hx of alcohol withdrawal. Nausea and dry heaves in the morning prior to alcohol use. Denies tremors. Increasing anxiety but denies diaphoresis. Currently states he feels better and no longer has any suicidal ideation. Never had a plan. Denies chest pain/pressure, palpitations. No SOB or difficulty breathing. In the ED pt was tachycardic up to 128 and was soft BP as low as 108/56. Labs were significant for sodium 128 with repeat 132, bicarb 18, anion gap 22, AST 232, and ALT 87. Ethyl alcohol level 308 at time of presentation. UA negative for UTI. EKG demonstrated normal sinus rhythm with QTc 531 and no evidence of significant ischemia. Pt was treated in the ED with lorazepam 2 mg p.o., IVF, thiamine 500 mg IV, ibuprofen, trazodone, and started on phenobarb protocol. Pt is admitted to the hospital for treatment and further evaluation of acute alcohol withdrawal. Hospital course Patient admitted to telemetry placed on phenobarb protocol. Protocol tolerated well. No seizure activity noted. On the day of discharge, being medically cleared he was seen by care team. At this time he voiced no suicidal or homicidal ideation and was resistant to admission to the psychiatric unit. No indication for section. At this time he is medically acceptable for discharge and will be discharged on naltrexone 50 mg daily. He will be given follow up to addiction Medicine and other substance abuse programs Time Attestation Discharge Coordination Time (in mins): 35 Quality: Safe Use of Opioids Does Pt have an Active Cancer Diagnosis on the Problem List?: No Quality: Stroke Does the patient have a stroke diagnosis?: No Physical Exam Vital Signs: Vital Signs: Last Vital Signs Temp 97.2 F 03/25/25 06:55 Pulse 84 03/25/25 06:55 Resp 18 03/25/25 06:55 BP 133/80 03/25/25 06:55 Pulse Ox 96 03/25/25 06:55 O2 Del Method Room Air 03/25/25 06:55 BMI result Body Mass Index 36.5 Const: Other: Awake alert no acute distress Resp: Other: Clear to auscultation bilaterally no rales rhonchi or wheezes Cardio: Other: No S4; positive S1-S2; no S3 murmurs rubs or gallops GI: Other: Soft nontender nondistended normoactive bowel sounds Extrem: Other: No edema bilaterally DS: Data Data Completed and Pending Labs on day of discharge: Laboratory Results - last 24 hr 03/25/25 06:16 Hold Purple Top SEE NOTE Sodium 135 Potassium 3.4 Chloride 101 Carbon Dioxide 24 Anion Gap 13 BUN 6 L Creatinine 0.71 Estim Creat Clear Calc 137.2 Estimated GFR > 60 Random Glucose 97 Calcium 8.5 Discharge Plan Discharge Anticipated Discharge Date/Time: 03/25/25 14:51 Patient Disposition: Home, Self-Care Discharge Diagnosis: Acute alcohol withdrawal Referrals: Hannah Salas MD [Primary Care Provider] - 1 Week Discharge Medications: New naltrexone 50 mg tablet 50 mg PO DAILY Qty: 30 0RF Rx Instructions: 1/2 tab daily x3 days. . . Then 1 pill daily Continued atorvastatin 10 mg tablet 10 mg PO DAILY clonazepam 0.5 mg tablet 0.5 mg PO BID PRN (Reason: Anxiety) amlodipine 10 mg tablet 10 mg PO DAILY lisinopril 30 mg tablet 30 mg PO DAILY hydroxyzine HCl 10 mg tablet 10 mg PO TID PRN (Reason: Anxiety) acetaminophen [Tylenol] 325 mg Tablet 650 mg PO Q4H PRN (Reason: Pain) Metamucil 3.4 gram/5.4 gram Powder 1 tbsp PO DAILY PRN (Reason: Constipation) Rx Instructions: mix into at least 8 oz of water or juice before administering psyllium husk [Metamucil] 0.4 gram Capsule 2 g PO DAILY PRN (Reason: Constipation) vitamin E 50 MG tablet 50 mg PO DAILY ibuprofen 200 mg Tablet 400 mg PO Q6H PRN (Reason: Pain) Discharge Orders: Discharge Order (Routine); Ordered 03/25/25 Ordered By: Jhon Robertson Diet: Advance to usual diet Activity on Discharge: As tolerated Stand Alone Forms: Patient Portal Discharge page Print Language: Vietnamese Care Plan Goals: Naltrexone has been added to your regimen. Take 1/2 tab (25 mg) daily for the 1st 3 days then 1 tab (50 mg) daily. You have been given information about the addiction Medicine [facility]. You can call for follow up. They will prescribe her naltrexone. Other referrals will be made for you to follow up Health Concerns: Resume all meds as taken prior to hospitalization Plan of Treatment: Avoid alcohol. Follow up with the PCP next available Assessment: See discharge summary
--- NOTE | 2025-03-25 15:18 | MHC.CM.PN ---
Pt is medically cleared for discharge home self-care, pts to transport him home today.
== END 2025-03-25 15:53 | disposition home or self-care (01) | DRG 775 ==
LOC: HO.ED 03-23 07:23 → HO.PADLT16 03-23 12:56 → HO.EDOVER 03-23 17:33 → HO.IMC 03-23 19:00
PROVIDERS: Emergency Medicine; Physician Assistant; Admitting Provider Student in an Organized Health Care Education/Training Program; Emergency Provider Emergency Medicine Emergency Medical Services; PCP Internal Medicine; Visit Provider Hospitalist
DX: F10.139 Alcohol abuse with withdrawal, unspecified (principal); F39 Unspecified mood [affective] disorder; E87.1 Hypo-osmolality and hyponatremia; F10.129 Alcohol abuse with intoxication, unspecified; Y90.8 Blood alcohol level of 240 mg/100 ml or more; R45.851 Suicidal ideations; I10 Essential (primary) hypertension; E78.5 Hyperlipidemia, unspecified; Z87.891 Personal history of nicotine dependence; Z79.899 Other long term (current) drug therapy
CPT/HCPCS: 36415; 80048; 80053; 80143; 80179; 80307; 81001; 83735; 85025; 93005; 99285; J1650; J2560; J3411; S9485

== ENCOUNTER → 2025-03-22 23:38 | Outpatient (BNV) | payer OTHER, SELFPAY | PROVIDERS: Admitting Provider Student in an Organized Health Care Education/Training Program; Emergency Provider Emergency Medicine Emergency Medical Services; PCP Internal Medicine; Visit Provider Internal Medicine | DX: R94.31 Abnormal electrocardiogram [ECG] [EKG] (principal); Z13.6 Encounter for screening for cardiovascular disorders | CPT/HCPCS: 93010 ==

== ENCOUNTER → 2025-03-23 17:28 | Outpatient (BNV) | payer OTHER, SELFPAY | PROVIDERS: Admitting Provider Student in an Organized Health Care Education/Training Program; Emergency Provider Emergency Medicine Emergency Medical Services; PCP Internal Medicine; Visit Provider Student in an Organized Health Care Education/Training Program | DX: F10.939 Alcohol use, unspecified with withdrawal, unspecified (principal); E87.1 Hypo-osmolality and hyponatremia | CPT/HCPCS: 99222; 99231; 99239 ==

== ENCOUNTER 2025-06-14 20:12 | Inpatient (IN) | payer OTHER, SELFPAY ==
--- NOTE | ~2025-06-14 | CT_ITS ---
EXAMINATION: CT HEAD WITHOUT CONTRAST CLINICAL INFORMATION: .' Encephalopathy COMPARISON: None available. TECHNIQUE: Contiguous axial imaging was performed from the skull base to vertex without intravenous administration of contrast. This CT examination was performed using dose optimization techniques as appropriate, variously including the following: *Automated exposure control *Adjustment of mA and/or kV according to patient size (this includes techniques or standardized protocols for targeted exams where dose is matched to indication/reason for exam; i.e. extremities or head) *Use of iterative reconstruction technique DLP: 906 mGY*cm FINDINGS: There is no acute ischemic change. Minimal periventricular white matter hypodensities are present. There is no intracranial hemorrhage. There is no mass-effect or midline shift. Basal cisterns and ventricles are within normal limits for age/cerebral volume. Orbits are symmetrical and unremarkable. Paranasal sinuses and mastoid air cells are pneumatized. There are no bony abnormalities. CT/CT head/brain wo IV con IMPRESSION: No acute intracranial abnormality. Mild small vessel changes. Electronically signed by: Pilo Dangelo MD 06/16/2025 12:20 PM EDT
[2025-06-14 20:31] VITALS: BP 122/62; PULSE 87; RESP 16; TEMP 36.8; O2SAT 95; BMI 29.0
--- NOTE | 2025-06-14 20:34 | ED.GENADULT ---
HPI - General Adult General Chief complaint: General Medical Stated complaint: alcohol use, extreme anxiety Time Seen by Provider: 06/14/25 20:43 History of Present Illness ED Provider: Mata ESCAMILLA narrative: The patient is a 55-year-old male who comes to the hospital with his family because of problems related to alcohol and anxiety. 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 He has been on leave from his job since October. He has been drinking more heavily since going on leave. He was hospitalized at this hospital 2 months ago after presenting for anxiety, depression and alcohol abuse. He was hospitalized for 2 days on a phenobarbital protocol and was discharged. He has since resumed alcohol. He has been drinking quite heavily over the last 5 days. His has been out of town. She arrived home this afternoon after having been away for a few days. She found the patient in the finished basement where there were a lot of empty alcohol bottles. He seemed intoxicated and upset. He says he was drinking wine and beer. He says that he feels profoundly anxious. His and son were concerned that he seemed to have done very poorly while he was on his own. They convinced him to come to the hospital. He agrees that he needs help because he has been drinking so much. He denies suicidality. There was no report of any trauma. No fever, sweats, chills. No chest pain or shortness of breath. No abdominal pain, nausea, vomiting. The patient says that he has a psychiatric prescriber and a therapist. He is on Lexapro. He also takes medication for hypertension and is on a statin. Related Data Home Medications ?Medication ?Instructions ?Recorded ?Confirmed acetaminophen 325 mg tablet 650 mg PO Q4H PRN Pain 03/23/25 03/23/25 (Tylenol) amlodipine 10 mg tablet 10 mg PO DAILY 03/23/25 03/23/25 atorvastatin 10 mg tablet 10 mg PO DAILY 03/23/25 03/23/25 clonazepam 0.5 mg tablet 0.5 mg PO BID PRN Anxiety 03/23/25 03/23/25 hydroxyzine HCl 10 mg tablet 10 mg PO TID PRN Anxiety 03/23/25 03/23/25 ibuprofen 200 mg tablet 400 mg PO Q6H PRN Pain 03/23/25 03/23/25 lisinopril 30 mg tablet 30 mg PO DAILY 03/23/25 03/23/25 psyllium husk 0.4 gram capsule 2 g PO DAILY PRN Constipation 03/23/25 03/23/25 (Metamucil) psyllium husk 3.4 gram/5.4 gram 1 tbsp PO DAILY PRN Constipation 03/23/25 03/23/25 oral powder (Metamucil) vitamin E 50 mg PO DAILY 03/23/25 03/23/25 Previous Rx's ?Medication ?Instructions ?Recorded naltrexone 50 mg tablet 50 mg PO DAILY #30 tabs 03/25/25 Allergies Allergy/AdvReac Type Severity Reaction Status Date / Time No Known Allergies Allergy Verified 06/14/25 20:32 Review of Systems Review of Systems: Yes all other systems are reviewed and are negative [facility] Past Medical History Medical History Alcohol use disorder Anxiety HLD (hyperlipidemia) HTN (hypertension) Social History Social History Household Members: Spouse and Family Housing: House Do you presently have visiting nurse or other home services: No Alcohol intake: current Alcohol intake frequency: 3 or more drinks per day Alcohol type: beer and wine Comment: 1:1 sitter Patient Tobacco Use Status: Former Tobacco user Smoked in Last 30 Days: No Use of substances other than those prescribed or required for medical reasons: No Substance Use Type: Marijuana Have you been hit, kicked, punched, or otherwise hurt by someone within the past year? If so, by whom?: No Do you feel safe in your current relationship?: Yes Is there a partner from a previous relationship who is making you feel unsafe now?: No Are you made to feel afraid or neglected: No Advance Directives: Yes Advance Directives Information Provided: Yes Advance Directives on File: Yes Advance Directives Date on File: 03/27/25 Do you have a plan to hurt others: No Plan Recently lost weight without trying: No Eating poorly because of decreased appetite: Yes Nutrition Risks: Poor intake 0-25% >4 days service: No Physical Exam ED Vital Signs: Vital Signs - 24 hr 06/14/25 20:31 06/14/25 21:25 06/14/25 22:13 Temperature 98.2 F 98.3 F Pulse Rate 87 90 85 Respiratory Rate 16 13 17 Blood Pressure 122/62 121/74 108/65 Pulse Oximetry 95 95 97 Oxygen Delivery Method Room Air Room Air Room Air Oxygen Flow Rate 4 BMI result Body Mass Index 29.0 Const Other: The patient is a rossi 55-year-old male who was awake and alert. He seems anxious but not in overt distress otherwise. He does not seem grossly intoxicated. No slurring of speech. HENMT Other: The face is symmetrical. ?Mucous membranes moist. Eyes Other: Pupils are round equal, conjunctivae are clear, extraocular movements intact Neck Neck: Yes normal visual inspection and Yes full ROM Resp Effort & Inspection: normal respiratory effort Auscultation: clear to auscultation bilaterally Cardio Rate: regular rate Rhythm: regular rhythm Heart sounds: S1 normal heart sound present and S2 normal heart sound present GI Other: The patient has a very large and protuberant abdomen but it is soft and nontender. Skin Other: Skin is dry and unremarkable Neuro Other: The patient is awake and alert. He does not seem grossly intoxicated. There was no obvious slurring of speech. He seems reasonably well oriented. Cranial nerves 2-12 are intact. He moves his extremities symmetrically and appropriately. Extrem Other: No peripheral edema. Good pulses in the feet. Course Course Course Narrative: RME, this is a rapid medical exam performed by [facility] Singlet[facility] please refer to primary provider for complete H&P- 55-year-old male past medical history significant for alcohol abuse and anxiety presents for evaluation of acute alcohol intoxication and anxiety. He was seen here a few months ago for similar. At that time he was having suicidal thoughts. He denies any suicidal thoughts today. He reports severe anxiety which she has been medicating with alcohol. He has not been eating over the last few days. He reports at least 9 drinks today. He was seen by a [facility] staff member in the community who recommended the patient come to the hospital for detox. The patient is amenable to detox at this time. Medications Administered Generic Name Dose Route Start Last Admin Trade Name Freq PRN Reason Stop Dose Admin Dexmedetomidine HCl 400 mcg in 100 mls @ 0 mls/hr 06/15/25 03:45 06/15/25 06:47 Precedex IVCONT 0.2 mcg/kg/hr .Q0M RANGEL 5.99 mls/hr Protocol Administration Per Protocol Pantoprazole Sodium 40 mg 06/15/25 06:30 06/15/25 05:50 Pantoprazole Sodium 40 Mg/10 Ml Vial IVPUSH 40 mg DAILY@0630 RANGEL Administration Discontinued Medications Generic Name Dose Route Start Last Admin Trade Name Cisco PRJuany Reason Stop Dose Admin Diazepam 10 mg 06/14/25 21:14 06/14/25 21:25 Diazepam 10 Mg/2 Ml Cartridge IVPUSH 06/14/25 21:15 10 mg STAT STA Administration Lorazepam 2 mg 06/14/25 21:03 06/14/25 21:25 Lorazepam 2 Mg/Ml Vial IVPUSH 06/14/25 21:04 Not Given ONCE ONE Phenobarbital Sodium 384 mg 06/14/25 22:30 06/14/25 22:34 Phenobarbital Sodium 130 Mg/Ml Im Once IM 06/14/25 22:31 384 mg ONCE ONE Administration Phenobarbital Sodium 288 mg 06/15/25 02:00 06/15/25 01:32 Phenobarbital Sodium 130 Mg/Ml Vial Im Q3hx2 IM 06/15/25 05:01 288 mg Q3H RANGEL Administration Medical Decision Making Medical Decision Making [facility] Narrative: The patient is a 55-year-old male who comes to the emergency room because of worsening alcohol abuse. He admits to significant anxiety although he denies suicidality. His was away for several days and he was on his own. This seems to have increased his alcohol use. His returned this evening and found him quite intoxicated and very anxious. He does not seem to has been eating. He is looking for help. We will check labs. The patient became somewhat acutely anxious after my initial evaluation and he was given 10 mg of IV diazepam. The patient's labs came back with a surprising finding of a sodium of 117. His alcohol was 321. His BUN is 4 in his creatinine is 0.68. Measured Serum osmolality is 314 which is consistent with his calculated serum osmolality. No osmolar gap. The patient has not produced any urine and no urine studies are available yet. My impression is that the patient has sodium of 117 is likely dilutional from beer drinking. In his case I think the appropriate management would be fluid restriction. The patient in initially seemed to respond well to the IV diazepam but he again became very anxious and so the phenobarb protocol was initiated and he was given IM phenobarbital. I discussed the case with Dr. Akhtar of Nephrology in the ICU who agrees that fluid restriction at this point is probably reasonable. He will see if there was an ICU bed available. The patient was admitted to the ICU.. Lab Data 06/15/25 04:10 06/15/25 04:10 Labs: Lab Results 06/14/25 06/14/25 Range/Units 21:30 22:51 WBC 9.1 (4.8-10.8) X10*3/uL RBC 4.59 L (4.60-5.80) X10*6/uL Hgb 14.8 (14.0-18.0) g/dl Hct 40.1 L (42.0-52.0) % MCV 87.4 (80.0-98.0) fL MCH 32.2 (27.0-33.0) pg MCHC 36.9 H (31.0-36.0) g/dl RDW 12.5 (11.0-16.0) % Plt Count 207 D (160-400) X10*3/uL MPV 8.4 L (9.4-12.4) fL Immature Gran % (Auto) 0.3 (0.0-0.4) % Neut % (Auto) 83.4 H (45-73) % Lymph % (Auto) 9.1 L (20-40) % [place] % (Auto) 6.5 (2-11) % Eos % (Auto) 0.5 (0-4) % Baso % (Auto) 0.2 (0-2) % Lymph # (Auto) 0.8 L (1.2-4.9) X10*3/uL [place] # (Auto) 0.6 (0.1-1.2) X10*3/uL Eos # (Auto) 0.1 (0.0-0.4) X10*3/uL Baso # (Auto) 0.0 (0.0-0.2) X10*3/uL Abs Immat Gran (auto) 0.03 (0.00-0.03) X10*3/uL Absolute Neuts (auto) 7.6 (2.0-8.3) x10*3/uL Absolute Nucleated RBC 0.000 (0.0-0.012) X10*3/uL Nucleated RBC % (auto) 0.0 (0.0-0.2) /100WBC Sodium 117 L* 117 L* (135-145) mmol/L Potassium 3.7 3.7 (3.3-5.1) mmol/L Chloride 83 L 83 L (96-108) mmol/L Carbon Dioxide 22 21 L (22-29) mmol/L Anion Gap 16 17 (12-20) BUN 4 L 4 L (9-16) mg/dL Creatinine 0.68 0.69 (0.5-1.4) mg/dL Estim Creat Clear Calc 178.8 176.2 Estimated GFR > 60 > 60 Random Glucose 140 H 136 H (60-115) mg/dL Osmolality Cancelled 314 H Calcium 7.7 L D 7.9 L (8.4-10.2) mg/dL Magnesium 1.8 (1.6-2.6) mg/dL Total Bilirubin 0.7 (0.0-1.0) mg/dL AST 155 H (5-37) U/L ALT 58 H (0-40) U/L Alkaline Phosphatase 136 H (39-117) U/L Total Protein 6.5 (6.5-8.0) g/dL Albumin 3.9 (3.5-5.0) g/dL Lipase 41 (8-78) U/L Ethyl Alcohol 321 H* mg/dL Independent Interpretation I performed an independent interpretation of an: EKG Interpretation: EKG at 20:38 shows normal sinus rhythm at 87 beats per minute. No definite acute ischemic changes. QTC 488. Critical Care Time Critical Care Time Critical Care Time: Yes Total Critical Care Time: 35 Attestation: The patient was critically ill with a high probability of imminent or life-threatening deterioration. ?I spent greater than 30 minutes of discontinuous time evaluating the patient, delivering critical care at the bedside, discussing evaluating data with consultants. ?Critical care time does not include time spent performing separately billable procedures or teaching. ?Time spent performing critical care with 35 minutes. Discharge Plan Discharge Clinical Impression: Hyponatremia, Alcohol intoxication, Alcoholism Patient Disposition: Admitted As Inpatient Discharge Date/Time: 06/15/25 01:54
--- NOTE | 2025-06-14 20:34 | ECG_ITS ---
Test Reason : ETOH/ANXIETY Blood Pressure : */* mmHG Vent. Rate : 87 BPM Atrial Rate : 87 BPM P-R Int : 160 ms QRS Dur : 100 ms QT Int : 406 ms P-R-T Axes : 28 18 21 degrees QTcB Int : 488 ms Normal sinus rhythm Prolonged QT Abnormal ECG When compared with ECG of 22-Mar-2025 23:54, No significant change was found Referred By: Vincent Singletary Electronically Signed By: PAUYL PERKINS MD
--- OUTSIDE RECORDS SUMMARY | 2025-06-14 20:52 | XMS_ITS | Clinical Summary ---
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 Name Role Phone Hannah Salas MD Primary Care Provider Allergies No known active allergies Medications alpha [...] (BMI) of 35.0 to 39.9 with comorbidity (CMS/HCC V24, CMS/HCC V28) 03/01/2021 Elevated ferritin level 11/28/2020 Elevated LFTs 11/23/2020 Tinea corporis 12/09/2017 Aortic root dilatation ([facility] V24) 11/13/2017 Overview (10/28/2024): 4.0 cm on echo 04/2018 Pure hypercholesterolemia 10/14/2017 Overweight 09/30/2017 Hypertension 09/30/2017 Immunizations Name Administration Dates Next Due H1N1 [...] for your loved ones. For example, child care center assistant director or elderly care for an older adult? [...] 94 11/17/2024 2:17 PM EST Temperature 36.5 C (97.7 F) 11/17/2024 2:17 PM EST Respiratory Rate 16 11/17/2024 2:17 PM EST Oxygen Saturation 97% 11/17/2024 2:17 PM EST Inhaled Oxygen Concentration - - Weight 108 kg (237 lb) 11/17/2024 2:17 PM EST Height 172.7 cm (5' 8 ) 11/17/2024 2:17 PM EST Body Mass Index 36.04 11/17/2024 2:17 PM EST Plan of Treatment Health Maintenance Due Date Last Done Comments Hepatitis B Vaccines (1 of 3 - 19+ 3-dose series) 02/19/1987 Pneumococcal Vaccine: 50+ Years (1 of 2 - PCV) 02/19/1987 Zoster Vaccines (1 of 2) 02/19/2018 HIV Screening 10/25/2022 COVID-19 Vaccine ( season) 2024 10/02/2021, 02/19/2021, 01/29/2021 Depression Screening 11/16/2024 11/03/2024 Influenza Vaccine (#1) 2025 7, 10/22/2015, 09/09/2013, Additional history exists Social Influencers of Health Screening 11/03/2025 11/03/2024 [...] on patient's age to complete this topic Hepatitis A Vaccines Aged Out No long er eligible based on patient's age to complete [...] Procedure Name Priority Date/Time Associated Diagnosis Comments BASIC METABOLIC PANEL Routine 12/19/2024 3:55 PM EST Hypertension, unspecified type Fatty liver Pure hypercholesterolemia Elevated LFTs Elevated liver enzymes Overweight LIPID PANEL WITH REFLEX TO DIRECT LDL Routine 12/19/2024 3:55 PM EST Hypertension, unspecified type Fatty liver Pure hypercholesterolemia Elevated LFTs Elevated liver enzymes Overweight COLONOSCOPY Routine 05/25/2023 HEPATITIS C SCREENING Routine 01/25/2021 from Last 3 Months or Most Recently Relevant to Health Maintenance Results * (ABNORMAL) Lipid panel with reflex to direct LDL (12/19/2024 3:55 PM EST) Cholesterol 256(H) 0 - 200 mg/dL LAB CHEMISTRY METHOD 12/19/2024 7:24 PM EST [facility] Triglycerides 770(H) 0 - 150 mg/dL LAB CHEMISTRY METHOD 12/19/2024 7:24 PM [facility] Comment:Results verified by repeat testing HDL 40 >=40 mg/dL LAB CHEMISTRY METHOD 12/19/2024 7:24 PM [facility] LDL Calculated LAB CHEMISTRY METHOD 12/19/2024 7:24 PM [facility] Comment: Unable to calculate when triglycerides >400 mg/dL. Triglyceride value is >= 500. Calculated LDL is not meaningful. Direct LDL has been added. VLDL Cholesterol [place] LAB CHEMISTRY METHOD 12/19/2024 7:24 PM [facility] Comment:Unable to calculate when triglycerides >400 mg/dL. Non HDL Chol. (LDL+VLDL) LAB CHEMISTRY METHOD 12/19/2024 7:24 PM [facility] Comment:Unable to calculate when triglycerides >400 mg/dL. Chol/HDL Ratio 6.4(H) 0.0 - 4.4 LAB CHEMISTRY METHOD 12/19/2024 7:24 PM [facility] Blood Venous blood specimen / Unknown Venipuncture / Unknown 12/19/2024 3:55 PM EST 12/19/2024 3:55 PM EST us Tammie Eastman SIDING APPLICATOR LAB BLOOD ORDERABLES Final R esult [facility] [address] [place] [address], * (ABNORMAL) Basic metabolic panel (12/19/2024 3:55 PM EST) Sodium 132(L) 133 - 145 mmol/L LAB CHEMISTRY METHOD 12/19/2024 7:09 PM [facility] Potassium 4.0 3.5 - 5.5 mmol/L LAB CHEMISTRY METHOD 12/19/2024 7:09 PM [facility] Chloride 97 96 - 110 mmol/L LAB CHEMISTRY METHOD 12/19/2024 7:09 PM [facility] CO2 25 21 - 32 mmol/L LAB CHEMISTRY METHOD 12/19/2024 7:09 PM [facility] Anion Gap 10 3 - 11 LAB CHEMISTRY METHOD 12/19/2024 7:09 PM [facility] Glucose 104(H) 70 - 100 mg/dL LAB CHEMISTRY METHOD 12/19/2024 7:09 PM [facility] BUN 7 5 - 25 mg/dL LAB CHEMISTRY METHOD 12/19/2024 7:09 PM [facility] Creatinine 0.94 0.70 - 1.30 mg/dL LAB CHEMISTRY METHOD 12/19/2024 7:09 PM [facility] eGFR 95 >=60 mL/min/1. 73m2 LAB CHEMISTRY METHOD 12/19/2024 7:09 PM [facility] Comment:Calculation based on the Chronic Kidney Disease Epidemiology Collaboration (CKD-EPI) equation refit without adjustment for race. BUN/Creatinine Ratio 7.4 LAB CHEMISTRY METHOD 12/19/2024 7:09 PM [facility] Calcium 8.6 8.5 - 10.5 mg/dL LAB CHEMISTRY METHOD 12/19/2024 7:09 PM [facility] Blood Venous blood specimen / Unknown Venipuncture / Unknown 12/19/2024 3:55 PM EST 12/19/2024 3:55 PM EST us Tammie Eastman SIDING APPLICATOR LAB BLOOD ORDERABLES Final R esult [facility] [address] [place] [address], * Colonoscopy (05/25/2023) Pathologist [facility] Colonoscopy No Interpretation , Abstracted Anatomical Region Laterality Modality Other Historical Provider HEALTH MAINTENANCE Final Result * Hepatitis C Screening (01/25/2021) Hepatitis C Screening Abstracted Historical Provider HEALTH MAINTENANCE Final Result from Last 3 Months or Most Recently Relevant to Health Maintenance Insurance [facility] Care Teams Professional Golf Tournament Player Relationship Specialty Start Date End Date Hannah Salas MD [address] [place] [id number] PCP - General 07/17/09
[2025-06-14 21:25] VITALS: BP 121/74; PULSE 90; RESP 13; O2SAT 95
[2025-06-14] MEDS: diazePAM 10 MG/2 ML CARTRIDGE IVPUSH (21:25)
[2025-06-14 21:35] LABS: MANUAL DIFF FLAG NO
[2025-06-14 21:55] LABS: Alanine Aminotransferase 58 U/L (0-40); Albumin Level 3.9 g/dL (3.5-5.0); Alkaline Phosphatase 136 U/L (39-117); Anion Gap 16 (12-20); Aspartate Amino Transferase 155 U/L (5-37); Blood Urea Nitrogen 4 mg/dL (9-16); Calcium 7.7 mg/dL (8.4-10.2); Carbon Dioxide 22 mmol/L (22-29); Chloride 83 mmol/L (96-108); Creatinine Clr Calc Pharmacy 178.8; Estimated Glomerular Filt Rate > 60; Hematocrit 40.1 % (42.0-52.0); Hemoglobin 14.8 g/dl (14.0-18.0); Imm Gran Abs Auto 0.03 X10*3/uL (0.00-0.03); Imm Gran Pct Auto 0.3 % (0.0-0.4); Lipase 41 U/L (8-78); Lymphocytes Absolute Auto 0.8 X10*3/uL (1.2-4.9); Magnesium 1.8 mg/dL (1.6-2.6); Mean Corpuscular HGB Conc 36.9 g/dl (31.0-36.0); Mean Corpuscular Hemoglobin 32.2 pg (27.0-33.0); Mean Corpuscular Volume 87.4 fL (80.0-98.0); NRBC Abs Auto 0.000 X10*3/uL (0.0-0.012); NRBC Pct Auto 0.0 /100WBC (0.0-0.2); Platelet Count 207 X10*3/uL (160-400); Potassium 3.7 mmol/L (3.3-5.1); Red Blood Count 4.59 X10*6/uL (4.60-5.80); Sodium 117 mmol/L (135-145); Total Protein 6.5 g/dL (6.5-8.0); White Blood Count 9.1 X10*3/uL (4.8-10.8)
[2025-06-14 22:13] VITALS: BP 108/65; PULSE 85; RESP 17; TEMP 36.8; O2SAT 97
[2025-06-14] MEDS: PHENobarbitaL sodium 130 MG/ML IM ONCE 384 MG IM (22:34)
[2025-06-14 23:10] LABS: Osmolality, Serum 314 mosm/kg (281-305)
[2025-06-14 23:13] LABS: Anion Gap 17 (12-20); Blood Urea Nitrogen 4 mg/dL (9-16); Calcium 7.9 mg/dL (8.4-10.2); Carbon Dioxide 21 mmol/L (22-29); Chloride 83 mmol/L (96-108); Creatinine Clr Calc Pharmacy 176.2; Estimated Glomerular Filt Rate > 60; Potassium 3.7 mmol/L (3.3-5.1); Sodium 117 mmol/L (135-145)
[2025-06-14 23:36] VITALS: O2SAT 92
--- NOTE | 2025-06-14 23:42 | PM.CCHP ---
History of Present Illness Date of Service: 06/14/25 Attending physician on admission: Mulugeta Akhtar Chief Complaint: Acute hypoosmolar Hyponatremia, etoh intox 55-year-old male with underlying history of alcohol dependence, anxiety, hypertension, hyperlipidemia, presented to the emergency room after his who was away for about 5 days, found the patient his basement surrounded by bottles of alcohol, the patient appeared to be intoxicated and upset, the patient complaints of being anxious and reporting to been drinking more heavily than usual over the past 5 days.? He reports multiple social issues including the loss of his job about 6 months ago. ?The patient is aware that alcohol is a problem. ?The patient is workup showed a hemodynamic clear stable patient, his workup is overall unremarkable with the exception of sodium of 117 with low sodium Osm and an ethyl alcohol level of 321. ?Review of his EKG shows sinus rhythm 87 beats per minute.? No ST elevations, no ST depressions.? QTC 488.? No comparison, reportedly the patient was drinking beer and wine. Initially the patient received 10 mg of IV diazepam and subsequently was started on phenobarbital protocol.? The patient will be admitted to the ICU for further care, [facility] Past Medical History Medical History Alcohol use disorder Anxiety HLD (hyperlipidemia) HTN (hypertension) Social History Social History Household Members: Spouse and Family Housing: House Do you presently have visiting nurse or other home services: No Alcohol intake: current Alcohol intake frequency: 3 or more drinks per day Alcohol type: beer and wine Comment: 1:1 sitter Patient Tobacco Use Status: Former Tobacco user Smoked in Last 30 Days: No Use of substances other than those prescribed or required for medical reasons: No Substance Use Type: Marijuana Have you been hit, kicked, punched, or otherwise hurt by someone within the past year? If so, by whom?: No Do you feel safe in your current relationship?: Yes Is there a partner from a previous relationship who is making you feel unsafe now?: No Are you made to feel afraid or neglected: No Advance Directives: Yes Advance Directives Information Provided: Yes Advance Directives on File: Yes Advance Directives Date on File: 03/27/25 Do you have a plan to hurt others: No Plan Recently lost weight without trying: No Eating poorly because of decreased appetite: Yes Nutrition Risks: Poor intake 0-25% >4 days service: No Meds Allergies Allergy/AdvReac Type Severity Reaction Status Date / Time No Known Allergies Allergy Verified 06/14/25 20:32 Active Medications: Current Medications Acetaminophen (Acetaminophen 325 Mg Tablet) 650 mg PO Q6H PRN PRN Reason: Fever >100.4 Enoxaparin Sodium (Enoxaparin Sodium 40 Mg/0.4 Ml Syringe) 40 mg SUBCUT Q24H [facility] Pharmacy Consult (Consult Rx Etoh Phenob Im/Po) 1 each MISCELLANE ONCE PRN; Protocol PRN Reason: Consult order Phenobarbital (Phenobarbital 30 Mg Tablet) 60 mg PO BID [facility] Stop: 06/16/25 21:01 Phenobarbital (Phenobarbital 30 Mg Tablet) 30 mg PO BID [facility] Stop: 06/18/25 21:01 Phenobarbital (Phenobarbital 15 Mg Tablet) 15 mg PO DAILY [facility] Stop: 06/20/25 09:01 Phenobarbital Sodium (Phenobarbital Sodium 130 Mg/Ml Vial Im Q3hx2) 288 mg IM Q3H [facility] Stop: 06/15/25 05:01 Home Medications ?Medication ?Instructions ?Recorded ?Confirmed ?Last Taken ?Type acetaminophen 325 mg tablet 650 mg PO Q4H PRN Pain 03/23/25 03/23/25 03/22/25 History (Tylenol) amlodipine 10 mg tablet 10 mg PO DAILY 03/23/25 03/23/25 03/22/25 History atorvastatin 10 mg tablet 10 mg PO DAILY 03/23/25 03/23/25 03/22/25 History clonazepam 0.5 mg tablet 0.5 mg PO BID PRN Anxiety 03/23/25 03/23/25 Unknown History hydroxyzine HCl 10 mg tablet 10 mg PO TID PRN Anxiety 03/23/25 03/23/25 Unknown History ibuprofen 200 mg tablet 400 mg PO Q6H PRN Pain 03/23/25 03/23/25 Unknown History lisinopril 30 mg tablet 30 mg PO DAILY 03/23/25 03/23/25 03/22/25 History psyllium husk 0.4 gram capsule 2 g PO DAILY PRN Constipation 03/23/25 03/23/25 Unknown History (Metamucil) psyllium husk 3.4 gram/5.4 gram 1 tbsp PO DAILY PRN Constipation 03/23/25 03/23/25 03/22/25 History oral powder (Metamucil) vitamin E 50 mg PO DAILY 03/23/25 03/23/25 03/22/25 History Physical Exam Vital Signs: Vital Signs: Last Vital Signs Temp 98.3 F 06/14/25 22:13 Pulse 85 06/14/25 22:13 Resp 17 06/14/25 22:13 BP 108/65 06/14/25 22:13 Pulse Ox 97 06/14/25 22:13 O2 Del Method Room Air 06/14/25 22:13 O2 Flow Rate 4 06/14/25 21:25 BMI result Body Mass Index 29.0 General: ?Alert oriented x3 no acute distress. Somewhat anxious. No accessory muscle usage. ?Following all commands. Skin: ?Thin, Intact, no lesions, edema, erythema, clubbing or cyanosis. ?No ulcers. HEENT: ?Head is normocephalic, atraumatic, pupils equal. Buccal mucosa is moist, white plaque on the tongue. Neck is supple without lymphadenopathy. Cardiac: ?Clear S1-S2, no murmurs rubs or gallops. Pulmonary: ?Good inspiratory effort, clear to auscultation bilaterally and throughout. Abdomen: Large,?Protuberant, positive bowel sounds in all 4 quadrants. ?Soft, nontender, no rebound or guarding. ? Musculoskeletal: ?Moving all 4 extremities upon request a major joints, there is no crepitus or tenderness. ?The strength is 5/5 bilaterally and throughout all 4 extremities. ?There is no leg edema , no calf tenderness , no leg asymmetry. ?Gait not assessed at this point. Neurologic: ?As above. ?No focal deficits noted. No asterixis. No tremors. Vascular: ?2+ pulses upper and lower extremities distally. ?Less than 2nd capillary refill of fingers and toes bilaterally upper and lower extremities Results Labs 06/15/25 04:10 06/15/25 04:10 Labs: Laboratory Results - last 24 hr 06/14/25 06/14/25 21:30 22:51 MCV 87.4 MCH 32.2 MCHC 36.9 H RDW 12.5 Plt Count 207 D MPV 8.4 L Immature Gran % (Auto) 0.3 Neut % (Auto) 83.4 H Lymph % (Auto) 9.1 L [place] % (Auto) 6.5 Eos % (Auto) 0.5 Baso % (Auto) 0.2 Lymph # (Auto) 0.8 L [place] # (Auto) 0.6 Eos # (Auto) 0.1 Baso # (Auto) 0.0 Abs Immat Gran (auto) 0.03 Absolute Neuts (auto) 7.6 Absolute Nucleated RBC 0.000 Nucleated RBC % (auto) 0.0 Anion Gap 16 17 Estim Creat Clear Calc 178.8 176.2 Estimated GFR > 60 > 60 Random Glucose 140 H 136 H Osmolality Cancelled 314 H Calcium 7.7 L D 7.9 L Magnesium 1.8 Total Bilirubin 0.7 AST 155 H ALT 58 H Alkaline Phosphatase 136 H Total Protein 6.5 Albumin 3.9 Lipase 41 Ethyl Alcohol 321 H* Assessment and Plan (1) Acute hyponatremia: Status: Resolved Plan ASSESSMENT : 1. Acute Euvolemic hyperosmolar hyponatremia 2. Acute alcohol intoxication with risk of withdrawal 3. Chronic alcohol abuse 4. Stable essential hypertension 5. Mild alcoholic transaminitis 6. Pseudo hypocalcemia with corrected calcium of 8.7 7. Oral Candidiasis PLAN OF CARE: The patient will be admitted to the ICU, monitor vital signs, I's and O's, we will fluid restrict him for now, repeat laboratories in the morning, CIWA assessment and protocol for Etoh withdraw with phenobarbital, he may need oral librium. Sz precautions. Nystatin swish and swallow. GI PROPHYLAXIS:? IV PPI DVT PROPHYLAXIS:? Lovenox subQ This patient counter and care had a high probability of a clinically significant, sudden, or life threatening deterioration of this patient's condition which required my full and direct attention, intervention and personal management. Critical care time used for critical evaluation of this patient, diagnosis, treatment and coordination of care, review her records and documentation TOTAL CRITICAL CARE TIME??? MIN . discussion and coordination with consultants, completely separate from any procedures performed. Patient's care was discussed in detail with Dr. Akhtar who is aware of all the above as well as the plan of care for this patient. Total time managing care of this patient today: 75 minutes.
[2025-06-15] VITALS (28 sets, daily range): BP systolic 91–136; BP diastolic 53–84; PULSE 67–99; RESP 12–25; TEMP 36.3–37; O2SAT 91–97; BMI 28.4
--- NOTE | 2025-06-15 00:44 | PC.NURSE ---
RN to RN given to Rhea in ICU
[2025-06-15] MEDS: PHENobarbitaL sodium 130 MG/ML VIAL IM Q3Hx2 288 MG IM (01:32)
--- NOTE | 2025-06-15 02:59 | PC.NURSE ---
Patient admitted for acute Hyponatremia, Etoh A&Ox4, seems to be anxious. CIWA scale, and Phenobarbital protocol initiated. NSR on telemetry. No edema noted. LS clear, on RA, no distress. Abdomen very large, distended, non tender. skin intact. Patient answers questions appropriately. Seizure and safety precautions in place. at bedside, call saleh within reach.
[2025-06-15] MEDS: dexmedeTOMIDine HCL/NS 400 MCG/100 ML PLAST..BAG 29.95 MCG IVCONT (03:53)
[2025-06-15 04:40] LABS: MANUAL DIFF FLAG NO
[2025-06-15 04:44] LABS: Hematocrit 38.6 % (42.0-52.0); Hemoglobin 14.4 g/dl (14.0-18.0); Imm Gran Abs Auto 0.03 X10*3/uL (0.00-0.03); Imm Gran Pct Auto 0.3 % (0.0-0.4); Lymphocytes Absolute Auto 0.6 X10*3/uL (1.2-4.9); Mean Corpuscular HGB Conc 37.3 g/dl (31.0-36.0); Mean Corpuscular Hemoglobin 32.1 pg (27.0-33.0); Mean Corpuscular Volume 86.0 fL (80.0-98.0); NRBC Abs Auto 0.000 X10*3/uL (0.0-0.012); NRBC Pct Auto 0.0 /100WBC (0.0-0.2); Platelet Count 161 X10*3/uL (160-400); Red Blood Count 4.49 X10*6/uL (4.60-5.80); White Blood Count 10.0 X10*3/uL (4.8-10.8)
[2025-06-15 05:06] LABS: Alanine Aminotransferase 53 U/L (0-40); Albumin Level 3.8 g/dL (3.5-5.0); Alkaline Phosphatase 143 U/L (39-117); Anion Gap 18 (12-20); Aspartate Amino Transferase 161 U/L (5-37); Blood Urea Nitrogen 4 mg/dL (9-16); Calcium 7.8 mg/dL (8.4-10.2); Carbon Dioxide 22 mmol/L (22-29); Chloride 82 mmol/L (96-108); Creatinine Clr Calc Pharmacy 185.2; Estimated Glomerular Filt Rate > 60; Magnesium 1.7 mg/dL (1.6-2.6); Potassium 3.7 mmol/L (3.3-5.1); Sodium 118 mmol/L (135-145); Total Protein 6.3 g/dL (6.5-8.0)
--- NOTE | 2025-06-15 05:57 | PC.NURSE ---
Addendum entered by Rhea Banda RN 06/15/25 07:12: Held 5am pheno dose per Raymond WARE - oncoming RN made aware. Patient now resting, snoring respirations, no distress / anxiety. Original Note: Patient c/o anxiety , CIWA score 11, Provider notified . Precedex ordered. Shortly after Precedex began infusing BP decreased to 70's systolic and O2 sats decreased to the 80's. Patient snoring and appeared slightly sedated. Vital signs did not improve therefore Precedex paused . Provider made aware. Vital signs now stable BP 128/83 , HR 100, RR 19 , O2 sats 95% on RA. Will continue to monitor.
[2025-06-15] MEDS: dexmedeTOMIDine HCL/NS 400 MCG/100 ML PLAST..BAG 5.99 MCG IVCONT ×2 (06:47→12:50)
--- NOTE | 2025-06-15 08:49 | PM.CCPN ---
Subjective Subjective Date of Service: 06/15/25 Interval History: Sodium increased to 118 from 117 last night Critical Care Time (minutes): 35 Physical Exam Exam: Exam: General: Elderly male in mild acute distress, ill appearing and tired appearing Nutritional Appearance: well nourished and overweight Eyes: appearance normal, both eyes and all related structures; Alignment and Position: alignment normal and position normal Neck: No lymphadenopathy, no thyromegaly Resp: bilateral air entry equal, occasional added sounds present Cardio: Regular rate, regular rhythm; Heart sounds: S1 normal heart sound present and S2 normal heart sound present GI: soft, nontender, no guarding, no hepatosplenomegaly : bladder normal to inspection, bladder normal to palpation, no renal angle tenderness Skin: no rashes or lesions noted and elasticity normal Neuro: oriented to person, oriented to place, oriented to time and moves all extremities Vital Signs: Vital Signs: Last Vital Signs Temp 98.6 F 06/15/25 08:00 Pulse 90 06/15/25 08:00 Resp 15 06/15/25 08:00 BP 116/78 06/15/25 08:00 Pulse Ox 91 L 06/15/25 08:00 O2 Del Method Room Air 06/15/25 08:00 O2 Flow Rate 4 06/14/25 21:25 BMI result Body Mass Index 28.4 Objective Data Labs 06/15/25 04:10 06/15/25 04:10 Labs: Laboratory Results - last 24 hr 06/14/25 06/14/25 06/15/25 21:30 22:51 04:10 WBC 9.1 10.0 RBC 4.59 L 4.49 L Hgb 14.8 14.4 Hct 40.1 L 38.6 L MCV 87.4 86.0 MCH 32.2 32.1 MCHC 36.9 H 37.3 H RDW 12.5 12.6 Plt Count 207 D 161 MPV 8.4 L 8.4 L Immature Gran % (Auto) 0.3 0.3 Neut % (Auto) 83.4 H 84.2 H Lymph % (Auto) 9.1 L 5.8 L [place] % (Auto) 6.5 9.2 Eos % (Auto) 0.5 0.3 Baso % (Auto) 0.2 0.2 Lymph # (Auto) 0.8 L 0.6 L [place] # (Auto) 0.6 0.9 Eos # (Auto) 0.1 0.0 Baso # (Auto) 0.0 0.0 Abs Immat Gran (auto) 0.03 0.03 Absolute Neuts (auto) 7.6 8.4 H Absolute Nucleated RBC 0.000 0.000 Nucleated RBC % (auto) 0.0 0.0 Sodium 117 L* 117 L* 118 L* Potassium 3.7 3.7 3.7 Chloride 83 L 83 L 82 L Carbon Dioxide 22 21 L 22 Anion Gap 16 17 18 BUN 4 L 4 L 4 L Creatinine 0.68 0.69 0.65 Estim Creat Clear Calc 178.8 176.2 185.2 Estimated GFR > 60 > 60 > 60 Random Glucose 140 H 136 H 124 H Osmolality Cancelled 314 H Calcium 7.7 L D 7.9 L 7.8 L Phosphorus 3.1 Magnesium 1.8 1.7 Total Bilirubin 0.7 0.8 AST 155 H 161 H ALT 58 H 53 H Alkaline Phosphatase 136 H 143 H Total Protein 6.5 6.3 L Albumin 3.9 3.8 Lipase 41 Ethyl Alcohol 321 H* Progress Note: A&P Assessment and plan (1) Acute anxiety: Status: Acute (2) Alcohol abuse: Status: Acute (3) Alcohol intoxication: Status: Acute (4) Hyponatremia: Status: Acute Plan Acute hyponatremia: Possibly secondary to be a proton anemia and poor oral intake We will start the patient on normal saline drip at 100 cc/hour Pending urine lytes We will get uric acid and TSH levels BMP q.4 hours, target sodium less than 125 by tonight Chronic alcoholism: Presented with alcohol levels of 320 Risk for alcohol withdrawal On precedex drip will taper off as tolerated with giving him IM phenobarbital 65mg IM On phenobarbital protocol Alcoholic hepatitis: AST 161, ALT 63 We will continue to monitor Prophylaxis: Lovenox Quality Stroke Does the patient have a stroke diagnosis?: No VTE Prior VTE?: No VTE Risk Level:: Medical - moderate - high VTE Device Contraindication: N/A - Device Ordered VTE Drug Contraindication: N/A - Med Ordered
[2025-06-15 10:40] LABS: Uric Acid 4.1 mg/dL (3.4-7.0)
[2025-06-15 10:44] LABS: Anion Gap 16 (12-20); Blood Urea Nitrogen 4 mg/dL (9-16); Calcium 7.8 mg/dL (8.4-10.2); Carbon Dioxide 19 mmol/L (22-29); Chloride 85 mmol/L (96-108); Creatinine Clr Calc Pharmacy 188.1; Estimated Glomerular Filt Rate > 60; Potassium 4.3 mmol/L (3.3-5.1); Sodium 116 mmol/L (135-145)
[2025-06-15 10:55] LABS: Thyroid Stimulating Hormone 2.59 uIU/mL (0.32-4.0)
--- NOTE | 2025-06-15 10:59 | HE.ICUCC ---
ICU Critical Care Nursing Note. Shift eval 7am-11am Neuro: Patient anxious, agitated / restless. CIWA score 15. Patient alert and oriented - easily redirected. Patient tolerating PO pheno, Dr Akhtar aware of CIWA score / mental status, plan to change 3rd dose IM pheno to PRN smaller dose. Held night IM pheno from shift leader, and changed dose to PRN 65mg IM, Q4Hr. Given per MAR for increase anxiety. Plan to try to wean dexmedetomidine drip off if possible per Dr Akhtar. Patient remains on low dose dexmedetomidine, 0.2 mg/hr. Serum sodium 118 as of 409, redraw done at approx 10am - critical result received, 116 - reported to Dr Akhtar. NS IV fluids started at approx 0900 - plan to keep fluids going and monitor sodium with next set of serial labs. Cardiac: SR 70's to 90's. Resp: No respiratory symptoms - no distress noted. GI/: Patient unable to void. Bladder scanned for 404 mL - patient brought a commode to sit on to assist with voiding. Educated Patient and about plan to void if possible. Urine sample needed, we will continue to monitor. Bed alarm put back on post void on commode. Integumentary/Musculoskeletal: Patient moving in bed independently / restless. No skin issues noted. Psychosocial (family etc.): at bedside - educated about plan for treatment about alcohol withdrawal - treatment with pheno PO & IM and dexmedetomidine.
--- NOTE | 2025-06-15 11:26 | PHA.MEDREC ---
Addendum entered by Khanh Whitaker RPh 06/15/25 11:33: Reviewed by [facility] Original Note: Pharmacy Consult ? Medication Reconciliation Pharmacy has completed the medication reconciliation. Spoke to Patient to confirm med list. patient states he is no longer taking Tylenol 650 mg, Metamucil, and Naltrexone 50 mg. Patient states he is still taking Lexapro 5 mg, last filled 04/06/25 for 30 days. patent last had his medications yesterday.
--- NOTE | 2025-06-15 13:46 | MHC.CM.PN ---
Met with pt to review dc planning needs: pt resides w/significant other, drives, has no barriers to care and has no current services. Pt has transportation to home and HCP on file/verified. Pt would benefit from CARE team consult for ETOH misuse. CM to follow.
[2025-06-15 14:57] LABS: Appearance Urine Clear; Glucose Urine UA 500 mg/dL (Negative); PH 5.5 (5.0-9.0); Specific Gravity - Urine >= 1.030 (1.005-1.025); UMIC TRIGGER UACC YES
[2025-06-15 15:01] LABS: Cannabinoid Screen Urine Not Detected (Not Detect)
[2025-06-15 15:05] LABS: UACC Culture Trigger YES
[2025-06-15 15:32] LABS: Anion Gap 14 (12-20); Blood Urea Nitrogen 6 mg/dL (9-16); Calcium 7.5 mg/dL (8.4-10.2); Carbon Dioxide 21 mmol/L (22-29); Chloride 87 mmol/L (96-108); Creatinine Clr Calc Pharmacy 156.3; Estimated Glomerular Filt Rate > 60; Potassium 4.4 mmol/L (3.3-5.1); Sodium 118 mmol/L (135-145)
[2025-06-15 19:24] LABS: Anion Gap 17 (12-20); Blood Urea Nitrogen 7 mg/dL (9-16); Calcium 7.4 mg/dL (8.4-10.2); Carbon Dioxide 20 mmol/L (22-29); Chloride 86 mmol/L (96-108); Creatinine Clr Calc Pharmacy 150.4; Estimated Glomerular Filt Rate > 60; Potassium 4.2 mmol/L (3.3-5.1); Sodium 119 mmol/L (135-145)
[2025-06-15] MEDS: dexmedeTOMIDine HCL/NS 400 MCG/100 ML PLAST..BAG 17.97 MCG IVCONT (21:36)
[2025-06-15 23:38] LABS: Anion Gap 14 (12-20); Blood Urea Nitrogen 7 mg/dL (9-16); Calcium 7.5 mg/dL (8.4-10.2); Carbon Dioxide 22 mmol/L (22-29); Chloride 87 mmol/L (96-108); Creatinine Clr Calc Pharmacy 167.2; Estimated Glomerular Filt Rate > 60; Potassium 4.3 mmol/L (3.3-5.1); Sodium 119 mmol/L (135-145)
[2025-06-16] VITALS (19 sets, daily range): BP systolic 92–138; BP diastolic 52–78; PULSE 64–84; RESP 11–20; TEMP 36.2–37.2; O2SAT 92–97; BMI 27.8
[2025-06-16] MEDS: 0.9 % Sodium Chloride Flush 3 ML SYRINGE IVFLUSH ×2 (00:30→16:12)
[2025-06-16] MEDS: dexmedeTOMIDine HCL/NS 400 MCG/100 ML PLAST..BAG 17.97 MCG IVCONT ×2 (03:03→08:15)
--- NOTE | 2025-06-16 03:55 | PC.NURSE ---
Addendum entered by Farhan Whalen RN 06/16/25 06:48: AM SODIUM =121..PER PROVIDER REPEAT 3% SALINE 20 CC/HR TOTAL 100ml hung...awake..alert oriented x3..oob to commode and voided 500 ml Original Note: CARE ASSUMED 7PM..INITIALLY DOZING THEN AWAKE SPONTANEOUSLY..ALERT..ORIENTED X3...DE [place]..REPOSITIONS SELF IN BED..PRECIDEX DRIP 0.4 MCG/KG/HR...C/O FEELING INCREASED ANXIETY..MILD TREMORS FELT TO HANDS...REQUESTED/RECEIVED PRN PHENOBARBITOL IM.FOLLOWED BY SCHEDULED PO PHENOBARBITOL...SERIAL LAB DRAWS REVIEWED BY PROVIDOR...NS 0.9% INCREASED FROM 100 CC/HR TO 150 CC/HR..F/U SODIUM REMAINED 119..PROVIDER D/C'D NS 0.9% FLUIDS...STARTED 3% NS AT 20 CC/HR X100 ML...FLUIDS AND PUMP REVIEWED BY SARA Perera..REMAINS ALERT ORIENTED X3..FOR 5AM LABS PER PROVIDER..OOB TO BEDSIDE COMMODE WITH STEADY GAIT..VOIDED LARGE AMOUNT URINE BUT COMMODE EMPTIED BY STAFF PRIOR TO MEASUREMENT...REMAINS 1000ML FLUID RESTRICTION..NSR..NO ECTOPY.. AT BEDSIDE
[2025-06-16 05:40] LABS: NRBC Abs Auto 0.000 X10*3/uL (0.0-0.012); NRBC Pct Auto 0.0 /100WBC (0.0-0.2); PLT CLUMP 1; SCAN SMEAR FLAG 1
[2025-06-16 05:42] LABS: Hematocrit 38.6 % (42.0-52.0); Hemoglobin 14.1 g/dl (14.0-18.0); Imm Gran Abs Auto 0.02 X10*3/uL (0.00-0.03); Imm Gran Pct Auto 0.4 % (0.0-0.4); Lymphocytes Absolute Auto 0.6 X10*3/uL (1.2-4.9); MANUAL DIFF FLAG SCAN; Mean Corpuscular HGB Conc 36.5 g/dl (31.0-36.0); Mean Corpuscular Hemoglobin 32.2 pg (27.0-33.0); Mean Corpuscular Volume 88.1 fL (80.0-98.0); Red Blood Count 4.38 X10*6/uL (4.60-5.80)
[2025-06-16 05:56] LABS: Alanine Aminotransferase 47 U/L (0-40); Albumin Level 3.4 g/dL (3.5-5.0); Alkaline Phosphatase 126 U/L (39-117); Anion Gap 12 (12-20); Aspartate Amino Transferase 172 U/L (5-37); Blood Urea Nitrogen 7 mg/dL (9-16); Calcium 7.6 mg/dL (8.4-10.2); Carbon Dioxide 21 mmol/L (22-29); Chloride 92 mmol/L (96-108); Creatinine Clr Calc Pharmacy 164.9; Estimated Glomerular Filt Rate > 60; Magnesium 1.8 mg/dL (1.6-2.6); Potassium 4.2 mmol/L (3.3-5.1); Sodium 121 mmol/L (135-145); Total Protein 5.8 g/dL (6.5-8.0)
[2025-06-16 06:03] LABS: Platelet Count 97 X10*3/uL (160-400); White Blood Count 4.8 X10*3/uL (4.8-10.8)
--- NOTE | 2025-06-16 08:53 | PM.CCPN ---
Subjective Subjective Date of Service: 06/16/25 Critical Care Time (minutes): 35 Physical Exam Vital Signs: Vital Signs: Last Vital Signs Temp 97.2 F 06/16/25 08:00 Pulse 64 06/16/25 08:00 Resp 14 06/16/25 08:00 BP 108/70 06/16/25 08:00 Pulse Ox 94 06/16/25 08:00 O2 Del Method Room Air 06/16/25 08:00 O2 Flow Rate 4 06/14/25 21:25 BMI result Body Mass Index 27.8 General: Middle-aged male in mild acute distress, he is chronically ill appearing and tired appearing Nutritional Appearance: well nourished and overweight Eyes: appearance normal, both eyes and all related structures; Alignment and Position: alignment normal and position normal Neck: No lymphadenopathy, no thyromegaly Resp: bilateral air entry equal, occasional added sounds present Cardio: Regular rate, regular rhythm; Heart sounds: S1 normal heart sound present and S2 normal heart sound present GI: soft, nontender, no guarding, no hepatosplenomegaly : bladder normal to inspection, bladder normal to palpation, no renal angle tenderness Skin: no rashes or lesions noted and elasticity normal Neuro: Confused, no neuro deficits moves all extremities Objective Data Labs 06/16/25 05:24 06/16/25 05:24 Labs: Laboratory Results - last 24 hr 06/15/25 06/15/25 06/15/25 10:08 13:58 13:59 WBC RBC Hgb Hct MCV MCH MCHC RDW Plt Count MPV Immature Gran % (Auto) Neut % (Auto) Lymph % (Auto) [place] % (Auto) Eos % (Auto) Baso % (Auto) Lymph # (Auto) [place] # (Auto) Eos # (Auto) Baso # (Auto) Abs Immat Gran (auto) Absolute Neuts (auto) Absolute Nucleated RBC Nucleated RBC % (auto) Smear Tech's Comments Sodium 116 L* Potassium 4.3 Chloride 85 L Carbon Dioxide 19 L Anion Gap 16 BUN 4 L Creatinine 0.64 Estim Creat Clear Calc 188.1 Estimated GFR > 60 Random Glucose 129 H Uric Acid 4.1 Calcium 7.8 L Phosphorus Magnesium Total Bilirubin AST ALT Alkaline Phosphatase Total Protein Albumin TSH 2.59 Urine Color Dark Yellow Urine Appearance Clear Urine pH 5.5 Ur Specific [place] >= 1.030 H Urine Protein 30 (1+) H Urine Glucose (UA) 500 H Urine Ketones Negative Urine Blood Negative Urine Nitrite Positive H Ur Leukocyte Esterase Trace H Urine RBC 0-2 Urine WBC 0-5 Ur Squamous Epith Cells 6-10 Urine Bacteria None Seen Hyaline Casts >20 Urine Osmolality 616 Ur Random Sodium < 20.0 Ur Random Potassium 78.8 Ur Random Chloride 23.0 Urine Creatinine 329.57 Urine Opiates Screen Not Detected Ur Buprenorphine Scrn Not Detected Ur Oxycodone Screen Not Detected Urine Methadone Screen Not Detected Urine Fentanyl Screen Not Detected Ur Barbiturates Screen POSITIVE H Ur Phencyclidine Scrn Not Detected Ur Amphetamines Screen Not Detected U Benzodiazepines Scrn Not Detected Urine Cocaine Screen Not Detected U Marijuana (THC) Screen Not Detected 06/15/25 06/15/25 06/15/25 15:06 18:52 23:11 WBC RBC Hgb Hct MCV MCH MCHC RDW Plt Count MPV Immature Gran % (Auto) Neut % (Auto) Lymph % (Auto) [place] % (Auto) Eos % (Auto) Baso % (Auto) Lymph # (Auto) [place] # (Auto) Eos # (Auto) Baso # (Auto) Abs Immat Gran (auto) Absolute Neuts (auto) Absolute Nucleated RBC Nucleated RBC % (auto) Smear Tech's Comments Sodium 118 L* 119 L* 119 L* Potassium 4.4 4.2 4.3 Chloride 87 L 86 L 87 L Carbon Dioxide 21 L 20 L 22 Anion Gap 14 17 14 BUN 6 L 7 L 7 L Creatinine 0.77 0.80 0.72 Estim Creat Clear Calc 156.3 150.4 167.2 Estimated GFR > 60 > 60 > 60 Random Glucose 123 H 121 H 121 H Uric Acid Calcium 7.5 L 7.4 L 7.5 L Phosphorus Magnesium Total Bilirubin AST ALT Alkaline Phosphatase Total Protein Albumin TSH Urine Color Urine Appearance Urine pH Ur Specific [place] Urine Protein Urine Glucose (UA) Urine Ketones Urine Blood Urine Nitrite Ur Leukocyte Esterase Urine RBC Urine WBC Ur Squamous Epith Cells Urine Bacteria Hyaline Casts Urine Osmolality Ur Random Sodium Ur Random Potassium Ur Random Chloride Urine Creatinine Urine Opiates Screen Ur Buprenorphine Scrn Ur Oxycodone Screen Urine Methadone Screen Urine Fentanyl Screen Ur Barbiturates Screen Ur Phencyclidine Scrn Ur Amphetamines Screen U Benzodiazepines Scrn Urine Cocaine Screen U Marijuana (THC) Screen 06/16/25 05:24 WBC 4.8 RBC 4.38 L Hgb 14.1 Hct 38.6 L MCV 88.1 MCH 32.2 MCHC 36.5 H RDW 12.8 Plt Count 97 L D MPV 9.3 L Immature Gran % (Auto) 0.4 Neut % (Auto) 79.3 H Lymph % (Auto) 11.7 L [place] % (Auto) 8.0 Eos % (Auto) 0.2 Baso % (Auto) 0.4 Lymph # (Auto) 0.6 L [place] # (Auto) 0.4 Eos # (Auto) 0.0 Baso # (Auto) 0.0 Abs Immat Gran (auto) 0.02 Absolute Neuts (auto) 3.8 Absolute Nucleated RBC 0.000 Nucleated RBC % (auto) 0.0 Smear Tech's Comments VERIFIED Sodium 121 L Potassium 4.2 Chloride 92 L Carbon Dioxide 21 L Anion Gap 12 BUN 7 L Creatinine 0.73 Estim Creat Clear Calc 164.9 Estimated GFR > 60 Random Glucose 113 Uric Acid Calcium 7.6 L Phosphorus 3.2 Magnesium 1.8 Total Bilirubin 1.1 H AST 172 H ALT 47 H Alkaline Phosphatase 126 H Total Protein 5.8 L Albumin 3.4 L TSH Urine Color Urine Appearance Urine pH Ur Specific [place] Urine Protein Urine Glucose (UA) Urine Ketones Urine Blood Urine Nitrite Ur Leukocyte Esterase Urine RBC Urine WBC Ur Squamous Epith Cells Urine Bacteria Hyaline Casts Urine Osmolality Ur Random Sodium Ur Random Potassium Ur Random Chloride Urine Creatinine Urine Opiates Screen Ur Buprenorphine Scrn Ur Oxycodone Screen Urine Methadone Screen Urine Fentanyl Screen Ur Barbiturates Screen Ur Phencyclidine Scrn Ur Amphetamines Screen U Benzodiazepines Scrn Urine Cocaine Screen U Marijuana (THC) Screen Progress Note: A&P Assessment and plan (1) Acute anxiety: Status: Acute (2) Alcohol intoxication: Status: Acute (3) Alcoholism: Status: Acute (4) Alcohol abuse: Status: Acute (5) Hyponatremia: Status: Acute Plan Acute hyponatremia: Possibly secondary to beer protonemia and poor oral intake. urine sodium < 20, osmol 600 suggestive of concentrated urine with poor renal perfusion Presented with sodium of and 117, correction was insignificant with normal saline at 100cc/hr, so 3% NS added at 20 mL/hour for further rapid correction uric acid and TSH levels normal BMP q.4 hours, target sodium less than 128 by tonight Chronic alcoholism: Presented with alcohol levels of 320 Risk for alcohol withdrawal on precedex, will taper off. received 2 doses of phenobarb overnight. On IM phenobarbital 65mg IM PRN q4h and oral phenobarbital protocol Depression: Patient has acute changes in his mental and psychological status since October when he suddenly quit his job one day and is indulged in excessive alcohol intake. We will get CT of the head to rule out any structural disease We will need psych and addiction Medicine once alcohol withdrawal he has been completely treated. Alcoholic hepatitis: AST 172, ALT 47 We will continue to monitor Prophylaxis: Lovenox Quality Stroke Does the patient have a stroke diagnosis?: No VTE Prior VTE?: No VTE Risk Level:: Medical - moderate - high VTE Device Contraindication: N/A - Device Ordered VTE Drug Contraindication: N/A - Med Ordered
--- NOTE | 2025-06-16 11:15 | MHC.CM.PN ---
Pt continues care in ICU: Na+ low at 121 - receiving 2nd L of 3% NS. Plan for today includes dex weaning in anticipation of transfer to the medical floor. D/C Plan is for a return to home at baseline Independent level of care. Pt would benefit from CARE team consult d/t ETOH use.
[2025-06-16 11:45] LABS: Alanine Aminotransferase 44 U/L (0-40); Albumin Level 3.3 g/dL (3.5-5.0); Alkaline Phosphatase 120 U/L (39-117); Anion Gap 12 (12-20); Aspartate Amino Transferase 189 U/L (5-37); Blood Urea Nitrogen 7 mg/dL (9-16); Calcium 7.6 mg/dL (8.4-10.2); Carbon Dioxide 24 mmol/L (22-29); Chloride 93 mmol/L (96-108); Creatinine Clr Calc Pharmacy 141.8; Estimated Glomerular Filt Rate > 60; Potassium 4.0 mmol/L (3.3-5.1); Sodium 125 mmol/L (135-145); Total Protein 5.7 g/dL (6.5-8.0)
[2025-06-16 13:27] LABS: Anion Gap 11 (12-20); Blood Urea Nitrogen 8 mg/dL (9-16); Calcium 8.1 mg/dL (8.4-10.2); Carbon Dioxide 24 mmol/L (22-29); Chloride 94 mmol/L (96-108); Creatinine Clr Calc Pharmacy 145.6; Estimated Glomerular Filt Rate > 60; Potassium 4.0 mmol/L (3.3-5.1); Sodium 125 mmol/L (135-145)
[2025-06-16 16:20] LABS: Anion Gap 11 (12-20); Blood Urea Nitrogen 7 mg/dL (9-16); Calcium 8.1 mg/dL (8.4-10.2); Carbon Dioxide 23 mmol/L (22-29); Chloride 95 mmol/L (96-108); Creatinine Clr Calc Pharmacy 158.0; Estimated Glomerular Filt Rate > 60; Potassium 4.0 mmol/L (3.3-5.1); Sodium 125 mmol/L (135-145)
[2025-06-17] VITALS (8 sets, daily range): BP systolic 114–152; BP diastolic 68–96; PULSE 86–107; RESP 18–20; TEMP 36.3–37.6; O2SAT 95–99
[2025-06-17 07:59] LABS: Anion Gap 14 (12-20); Blood Urea Nitrogen 6 mg/dL (9-16); Calcium 8.0 mg/dL (8.4-10.2); Carbon Dioxide 23 mmol/L (22-29); Chloride 97 mmol/L (96-108); Creatinine Clr Calc Pharmacy 155.8; Estimated Glomerular Filt Rate > 60; Potassium 3.7 mmol/L (3.3-5.1); Sodium 130 mmol/L (135-145)
--- NOTE | 2025-06-17 08:57 | P.PNIM_ITS ---
Subjective Subjective Date of Service: 06/17/25 Interval History: anxious Physical Exam 2 Exam: Exam: General: AO X 3, no acute distress Resp: CTA bilateral, no accessory muscles used CVS: S1,S2,RRR GI: soft, non tender, non distended Neuro: motor grossly intact, alert Psych: appropriate affect, appropriate insight Vital Signs: Vital Signs: Last Vital Signs Temp 98.5 F 06/17/25 07:48 Pulse 99 06/17/25 07:48 Resp 18 06/17/25 07:48 BP 151/96 H 06/17/25 07:48 Pulse Ox 96 06/17/25 07:48 O2 Del Method CPAP 06/17/25 07:48 O2 Flow Rate 4 06/14/25 21:25 BMI result Body Mass Index 27.8 Objective Data Active Medications Acetaminophen (Acetaminophen 325 Mg Tablet) 650 mg PO Q6H PRN PRN Reason: Fever >100.4 Last Admin: 06/15/25 17:36 Dose: 650 mg Documented By: DIANA Amlodipine Besylate (Amlodipine Besylate 10 Mg Tablet) 10 mg PO DAILY [facility]; Protocol Last Admin: 06/17/25 08:37 Dose: 10 mg Documented By: ELADIO Atorvastatin Calcium (Atorvastatin Calcium 10 Mg Tablet) 10 mg PO DAILY [facility] Last Admin: 06/17/25 08:37 Dose: 10 mg Documented By: ELADIO Clonazepam (Clonazepam 0.5 Mg Tablet) 0.5 mg PO BID PRN PRN Reason: Anxiety Last Admin: 06/17/25 08:37 Dose: 0.5 mg Documented By: ELADIO Enoxaparin Sodium (Enoxaparin Sodium 40 Mg/0.4 Ml Syringe) 40 mg SUBCUT Q24H [facility] Last Admin: 06/17/25 08:37 Dose: 40 mg Documented By: ELADIO Folic Acid (Folic Acid 1 Mg Tablet) 1 mg PO DAILY [facility] Last Admin: 06/17/25 08:37 Dose: 1 mg Documented By: ELADIO Hydroxyzine HCl (Hydroxyzine Hcl 25 Mg Tablet) 25 mg PO BID PRN PRN Reason: Anxiety Last Admin: 06/17/25 00:17 Dose: 25 mg Documented By: GERALDINE Sodium Chloride (Ns) 1,000 mls @ 100 mls/hr IVCONT .Q10H [facility] Last Admin: 06/17/25 00:18 Dose: 100 mls/hr Documented By: GERALDINE Pantoprazole Sodium (Pantoprazole Sodium 40 Mg/10 Ml Vial) 40 mg IVPUSH DAILY@0630 [facility] Last Admin: 06/17/25 06:49 Dose: 40 mg Documented By: GERALDINE Pharmacy Consult (Consult Rx Etoh Phenob Im/Po) 1 each MISCELLANE ONCE PRN; Protocol PRN Reason: Consult order Phenobarbital (Phenobarbital 30 Mg Tablet) 30 mg PO BID [facility] Stop: 06/18/25 21:01 Last Admin: 06/17/25 08:37 Dose: 30 mg Documented By: ELADIO Phenobarbital (Phenobarbital 15 Mg Tablet) 15 mg PO DAILY [facility] Stop: 06/20/25 09:01 Phenobarbital Sodium (Phenobarbital Sodium 65 Mg/Ml Vial) 65 mg IM Q4H PRN PRN Reason: Alcohol Withdrawal Last Admin: 06/16/25 14:23 Dose: 65 mg Documented By: DIANA Sodium Chloride (0.9 % Sodium Chloride Flush 3 Ml Syringe) 3 ml IVFLUSH QSHIFT [facility] Last Admin: 06/17/25 08:36 Dose: Not Given Documented By: ELADIO Non-Admin Reason: IV Running Thiamine HCl (Thiamine Hcl 100 Mg Tablet) 100 mg PO DAILY [facility] Last Admin: 06/17/25 08:37 Dose: 100 mg Documented By: ELADIO Labs 06/16/25 05:24 06/17/25 07:39 Labs: Laboratory Results - last 24 hr 06/16/25 06/16/25 06/16/25 11:13 13:06 15:53 Anion Gap 12 11 L 11 L Estim Creat Clear Calc 141.8 145.6 158.0 Estimated GFR > 60 > 60 > 60 Random Glucose 113 115 107 Calcium 7.6 L 8.1 L D 8.1 L Total Bilirubin 1.1 H AST 189 H ALT 44 H Alkaline Phosphatase 120 H Total Protein 5.7 L Albumin 3.3 L 06/17/25 07:39 Anion Gap 14 Estim Creat Clear Calc 155.8 Estimated GFR > 60 Random Glucose 77 Calcium 8.0 L Total Bilirubin AST ALT Alkaline Phosphatase Total Protein Albumin Microbiology Microbiology Results: Microbiology 06/15/25 15:06 Urine Culture - Final Urine clean catch - Clean Catch Midstream No growth. Assessment and Plan (1) Alcoholism: Status: Acute (2) Hyponatremia: Status: Acute Plan 55M PMH dependence, anxiety, hypertension, hyperlipidemia admitted to the intensive care unit on 06/14/2025 for alcohol intoxication found to have sodium of 117, sodium improved with normal saline at appropriate rate, course complicated by alcohol withdrawal was treated with phenobarbital patient downgraded to medical floor on 06/16/2025. Acute toxic metabolic encephalopathy due to alcohol intoxication complicated by acute hyponatremia Mental status back to baseline, sodium improved at appropriate rate, now 130 Alcohol dependence with risk for withdrawal Continue phenobarbital, follow up with Addiction team Hypertension Amlodipine Hyperlipidemia Continue statin DVT prophylaxis with Lovenox Full Code reason for continued hospitalization: Treating withdrawal, awaiting Addiction eval Quality Stroke Does the patient have a stroke diagnosis?: No VTE Prior VTE?: No VTE Risk Level:: Medical - moderate - high VTE Device Contraindication: N/A - Device Ordered VTE Drug Contraindication: N/A - Med Ordered
--- NOTE | 2025-06-17 15:55 | MHC.RECOVRN ---
Met with pt after receiving addiction consult to discuss EtOH consumption, recovery supports and other resources. present at bedside per pt request. Discussed recovery options following d/c such as CSS and IOP. Pt aprehensive about which route he wants to take, but leaning more towards outpatient treatment. Pt wants to restart KAILEY. Will discuss with addiction medicine provider.
[2025-06-18 03:04] VITALS: BP 155/98; PULSE 101; RESP 18; TEMP 36.5; O2SAT 96
[2025-06-18 06:55] LABS: Alanine Aminotransferase 37 U/L (0-40); Albumin Level 3.2 g/dL (3.5-5.0); Alkaline Phosphatase 119 U/L (39-117); Anion Gap 13 (12-20); Aspartate Amino Transferase 130 U/L (5-37); Blood Urea Nitrogen 7 mg/dL (9-16); Calcium 7.9 mg/dL (8.4-10.2); Carbon Dioxide 22 mmol/L (22-29); Chloride 100 mmol/L (96-108); Creatinine Clr Calc Pharmacy 167.6; Estimated Glomerular Filt Rate > 60; Magnesium 1.9 mg/dL (1.6-2.6); Potassium 3.4 mmol/L (3.3-5.1); Sodium 132 mmol/L (135-145); Total Protein 5.6 g/dL (6.5-8.0)
[2025-06-18 07:01] LABS: INTERNATIONAL NORM RATIO 1.4 (0.9-1.1); Prothrombin Time 16.4 SEC (10.9-12.4)
[2025-06-18 07:05] LABS: Hematocrit 38.7 % (42.0-52.0); Hemoglobin 13.5 g/dl (14.0-18.0); Mean Corpuscular HGB Conc 34.9 g/dl (31.0-36.0); Mean Corpuscular Hemoglobin 31.8 pg (27.0-33.0); Mean Corpuscular Volume 91.3 fL (80.0-98.0); NRBC Abs Auto 0.000 X10*3/uL (0.0-0.012); NRBC Pct Auto 0.0 /100WBC (0.0-0.2); Red Blood Count 4.24 X10*6/uL (4.60-5.80); White Blood Count 4.4 X10*3/uL (4.8-10.8)
[2025-06-18 07:07] LABS: Platelet Count 88 X10*3/uL (160-400)
[2025-06-18 07:16] VITALS: BP 119/75; PULSE 80; RESP 18; TEMP 36.2; O2SAT 97
--- NOTE | 2025-06-18 08:56 | P.DS_ITS ---
DS: Providers Provider Date of Service: 06/18/25 Date of admission: 06/14/25 23:36 Date of discharge: 06/18/25 Primary care physician: Hannah Salas MD Consults: 06/14/25 20:34 ED Recovery Team Consult Stat Comment: Reason for consultation: significant alcohol abuse 06/17/25 07:59 Addiction Medicine Provider Routine Consulting Provider: Addiction Covering Reason for consultation: etoh DS: Diagnosis Discharge Diagnosis (1) Alcoholism: Status: Acute (2) Hyponatremia: Status: Acute DS: Summary Hospital Course Hospital Course: from initial hpi: 55-year-old male with underlying history of alcohol dependence, anxiety, hypertension, hyperlipidemia, presented to the emergency room after his who was away for about 5 days, found the patient his basement surrounded by bottles of alcohol, the patient appeared to be intoxicated and upset, the patient complaints of being anxious and reporting to been drinking more heavily than usual over the past 5 days.? He reports multiple social issues including the loss of his job about 6 months ago. ?The patient is aware that alcohol is a problem. ?The patient is workup showed a hemodynamic clear stable patient, his workup is overall unremarkable with the exception of sodium of 117 with low sodium Osm and an ethyl alcohol level of 321. ?Review of his EKG shows sinus rhythm 87 beats per minute.? No ST elevations, no ST depressions.? QTC 488.? No comparison, reportedly the patient was drinking beer and wine. Initially the patient received 10 mg of IV diazepam and subsequently was started on phenobarbital protocol.? The patient will be admitted to the ICU for further care, hospital course: Patient was admitted to the intensive care unit for alcohol intoxication with hyponatremia of 117. Patient was given normal saline and sodium improved at an appropriate rate is 132 at time of discharge. Course was complicated by alcohol dependence with withdrawal which was treated with phenobarbital. He was also seen by Addiction team and provided patient with materials for support. For hypertension was continued on amlodipine. Lisinopril was discontinued due to low normal blood pressures but this should be monitored as outpatient and may need to restart if blood pressure increases. For hyperlipidemia was continued on statin. Patient is medically stable will be discharged home. Time Attestation Discharge Coordination Time (in mins): 33 Quality: Safe Use of Opioids Does Pt have an Active Cancer Diagnosis on the Problem List?: No Quality: Stroke Does the patient have a stroke diagnosis?: No Physical Exam Exam: Exam: General: AO X 3, no acute distress Resp: CTA bilateral, no accessory muscles used CVS: S1,S2,RRR GI: soft, non tender, non distended Neuro: motor grossly intact, alert Psych: appropriate affect, appropriate insight Vital Signs: Vital Signs: Last Vital Signs Temp 97.2 F 06/18/25 07:16 Pulse 80 06/18/25 07:16 Resp 18 06/18/25 07:16 BP 119/75 06/18/25 07:16 Pulse Ox 97 06/18/25 07:16 O2 Del Method Room Air 06/18/25 07:16 O2 Flow Rate 4 06/14/25 21:25 BMI result Body Mass Index 27.8 DS: Data Data Completed and Pending Completed studies during hospitalization [Text1]: Procedures Detoxification Services for Substance Abuse Treatment (03/23/25) Labs on day of discharge: Laboratory Results - last 24 hr 06/18/25 06:15 WBC 4.4 L RBC 4.24 L Hgb 13.5 L Hct 38.7 L MCV 91.3 MCH 31.8 MCHC 34.9 RDW 13.4 Plt Count 88 L MPV 9.5 Absolute Nucleated RBC 0.000 Nucleated RBC % (auto) 0.0 PT 16.4 H INR 1.4 H Sodium 132 L Potassium 3.4 Chloride 100 Carbon Dioxide 22 Anion Gap 13 BUN 7 L Creatinine 0.66 Estim Creat Clear Calc 167.6 Estimated GFR > 60 Random Glucose 77 Calcium 7.9 L Magnesium 1.9 Total Bilirubin 1.2 H Direct Bilirubin 0.6 H AST 130 H ALT 37 Alkaline Phosphatase 119 H Total Protein 5.6 L Albumin 3.2 L Discharge Plan Discharge Anticipated Discharge Date/Time: 06/18/25 08:54 Patient Disposition: Home, Self-Care Discharge Diagnosis: etoh, low sodium Referrals: Hannah Salas MD [Primary Care Provider, Medical] - 1 Week Discharge Medications: Continued escitalopram oxalate 5 mg tablet 5 mg PO DAILY hydroxyzine HCl 25 mg tablet 25 mg PO BID PRN (Reason: Anxiety) atorvastatin 10 mg tablet 10 mg PO DAILY clonazepam 0.5 mg tablet 0.5 mg PO BID PRN (Reason: Anxiety) amlodipine 10 mg tablet 10 mg PO DAILY vitamin E 50 MG tablet 50 mg PO DAILY ibuprofen 200 mg Tablet 400 mg PO Q6H PRN (Reason: Pain) Discontinued lisinopril 30 mg tablet 30 mg PO DAILY Discharge Orders: Discharge Order (Routine); Ordered 06/18/25 Ordered By: Jorgito Ram Diet: Advance to usual diet Activity on Discharge: As tolerated Stand Alone Forms: Patient Portal Discharge page Print Language: [place] Care Plan Goals: recovery Health Concerns: etoh depedence Plan of Treatment: avoid alcohol[facility] lisinopril has been held due to low normal blood pressures, may need to restart if bp increases Assessment: see above
--- NOTE | 2025-06-18 10:11 | MHC.CM.PN ---
PT TO DC HOME TODAY WITH NO SERVICES VIA PRIVATE TRANSPORT
== END 2025-06-18 09:37 | disposition home or self-care (01) | DRG 775 ==
LOC: HO.ED 20:51 → HO.EDOVER 06-15 → HO.ICU 06-15 00:12 → HO.S3 06-16 16:13
PROVIDERS: Internal Medicine Critical Care Medicine; Physician Assistant; Admitting Provider Physician Assistant Medical; Emergency Provider Emergency Medicine; PCP Internal Medicine; Visit Provider Internal Medicine
DX: F10.239 Alcohol dependence with withdrawal, unspecified (principal); F10.229 Alcohol dependence with intoxication, unspecified; G92.8 Other toxic encephalopathy; B37.0 Candidal stomatitis; K70.10 Alcoholic hepatitis without ascites; E87.1 Hypo-osmolality and hyponatremia; E78.5 Hyperlipidemia, unspecified; Y90.8 Blood alcohol level of 240 mg/100 ml or more; F41.9 Anxiety disorder, unspecified; F32.A Depression, unspecified; I10 Essential (primary) hypertension; Z87.891 Personal history of nicotine dependence; Z79.899 Other long term (current) drug therapy
CPT/HCPCS: 36415; 70450; 80048; 80053; 80076; 80307; 81001; 82436; 82570; 83690; 83735; 83930; 83935; 84100; 84133; 84300; 84443; 84550; 85025; 85027; 85610; 87086; 93005; 94660; 99285; J1650; J2470; J2560; J3360; J7131; S9485

== ENCOUNTER → 2025-06-14 20:34 | Outpatient (BNV) | payer OTHER, SELFPAY | PROVIDERS: Admitting Provider Physician Assistant Medical; Emergency Provider Emergency Medicine; PCP Internal Medicine; Visit Provider Internal Medicine Cardiovascular Disease | DX: R94.31 Abnormal electrocardiogram [ECG] [EKG] (principal); F10.90 Alcohol use, unspecified, uncomplicated; F41.9 Anxiety disorder, unspecified | CPT/HCPCS: 93010 ==

== ENCOUNTER 2025-06-14 23:36 | Outpatient (BNV) | payer OTHER, SELFPAY | END 2025-06-16 11:02 | PROVIDERS: Admitting Provider Physician Assistant Medical; Emergency Provider Emergency Medicine; PCP Internal Medicine; Visit Provider Radiology Diagnostic Radiology | DX: G93.40 Encephalopathy, unspecified (principal) | CPT/HCPCS: 70450 ==

== ENCOUNTER → 2025-06-14 23:36 | Outpatient (BNV) | payer OTHER, SELFPAY | PROVIDERS: Admitting Provider Physician Assistant Medical; Emergency Provider Emergency Medicine; PCP Internal Medicine; Visit Provider Internal Medicine | DX: F10.20 Alcohol dependence, uncomplicated (principal); E87.1 Hypo-osmolality and hyponatremia | CPT/HCPCS: 99232; 99239 ==

== ENCOUNTER → 2025-06-14 23:36 | Outpatient (BNV) | payer OTHER, SELFPAY | PROVIDERS: Admitting Provider Physician Assistant Medical; Emergency Provider Emergency Medicine; PCP Internal Medicine; Visit Provider Physician Assistant Medical | DX: E87.1 Hypo-osmolality and hyponatremia (principal); F10.929 Alcohol use, unspecified with intoxication, unspecified; F41.9 Anxiety disorder, unspecified | CPT/HCPCS: 99223; 99291 ==